=== PATIENT | male | born 2000 | race Two or more races ===

== ENCOUNTER 2023-09-29 22:22 | Emergency (ER) | payer OTHER, MEDICAID, SELFPAY ==
--- NOTE | ~2023-09-29 | XR_ITS ---
EXAMINATION: XR ABDOMEN KUB CLINICAL INDICATION: Swallowed a coin COMPARISON: 09/30/2023 TECHNIQUE: AP view of the abdomen. FINDINGS: The coin seen yesterday on a KUB at 1:48 AM is no longer present and presumably has been passed or removed endoscopically. The bowel gas pattern is normal with no evidence of ileus or obstruction. No unusual soft tissue calcifications are noted. The bones are unremarkable. XR/XR KUB IMPRESSION: The coin seen yesterday is no longer present.
--- NOTE | ~2023-09-29 | XR_ITS ---
EXAMINATION: XR ABDOMEN KUB CLINICAL INDICATION: Reason for Exam psych, states ate coins? COMPARISON: None available. TECHNIQUE: AP view of the abdomen. FINDINGS: Round metallic density overlying the right upper quadrant measures approximately 2.6 cm in diameter, suspicious for an ingested coin in the distal stomach. Bowel gas pattern is nonobstructive. Moderate stool is present in the right colon. Limited assessment for free air with supine positioning. No suspicious calcifications are seen. No acute osseous findings are seen. XR/XR KUB IMPRESSION: Round metallic density overlying the right upper quadrant, suspicious for an ingested coin in the distal stomach.
[2023-09-29 22:55] VITALS: BP 128/88; BP 148/88; PULSE 120; PULSE 126; RESP 18; TEMP 36.3; O2SAT 94; O2SAT 97; BMI 25.2
[2023-09-30 00:07] LABS: Amphetamine Screen Urine POSITIVE (Not Detect); Barbiturates, Urine Not Detected (Not Detect); Benzodiazepines Screen Urine Not Detected (Not Detect); Buprenorphine Scr Not Detected (Not Detect); Cannabinoid Screen Urine Not Detected (Not Detect); Cocaine Screen Urine Not Detected (Not Detect); Fentanyl, urine Not Detected (Not Detect); Methadone Screen, Urine Not Detected (Not Detect); Opiate Screen Urine Not Detected (Not Detect); Oxycodone Screen Urine Not Detected (Not Detect); Phencyclidine Screen Urine Not Detected (Not Detect)
--- NOTE | 2023-09-30 00:58 | ED.PSYCH ---
HPI - Psych General Chief Complaint: Psychiatric Symptoms Stated Complaint: si and hallucinations Time Seen by Provider: 09/29/23 22:40 Source: patient and EMS Mode of arrival: EMS Limitations: no limitations History of Present Illness ED Provider: Dr. Lory Echols HPI Narrative: Patient comes to the emergency room stating that he is hearing voices. Patient states that the voices are telling him to hurt himself. Patient states that earlier today he swallowed a coin because the voices told him to do so. Patient states he is compliant with his medications. Denies using drugs or alcohol. Related Data Allergies Allergy/AdvReac Type Severity Reaction Status Date / Time No Known Allergies Allergy Verified 09/29/23 23:04 Review of Systems Review of Systems: Constitutional : No Weight loss, No Fever, No Chills, No Night Sweats, No Fatigue, No Malaise ENT/Mouth : No Hearing loss, No Ear Pain, No Nasal Congestion, No Sinus Pain, No Hoarseness, No sore throat, No Rhinorrhea, No Swallowing Difficulty Eyes: No Eye Pain, No Swelling, No Redness, No Foreign Body, No Discharge, No Vision Changes Cardiovascular : No Chest Pain, No SOB, No Dyspnea on Exertion, No Orthopnea, No Edema, No Palpitations Respiratory : No Cough, No Sputum, No Wheezing, No Smoke Exposure, No Dyspnea Gastrointestinal : No Nausea, No Vomiting, No Diarrhea, No Constipation, No abdominal Pain, No Hematochezia, No Melena Genitourinary : no irregular bleeding, No Dysuria, No Urinary Frequency, No Hematuria, No Urinary Incontinence, No Urgency, No Flank Pain, No Urinary Flow Changes, No Hesitancy Musculoskeletal : No joint pain, No Myalgias, No Joint Swelling Skin : No Skin Lesions, No rash Neuro : No Weakness, No Numbness, No Paresthesias, No Loss of Consciousness, No Dizziness, No Headache Psych : No Anxiety/Panic, No Depression, complaining of auditory hallucinations, voices telling him to harm himself, no specifics, vague HI Heme/Lymph: No Bruising, No Bleeding,No Lymphadenopathy Endocrine : No Polyuria, No Polydipsia, No Temperature Intolerance PMFSH Social History Social History Advance Directives: No Advance Directives Information Provided: No Do you have a plan to hurt others: No Plan Physical Exam Vital Signs: Vital Signs: Last Vital Signs Temp 97.4 F 09/29/23 22:55 Pulse 120 H 09/29/23 22:55 Resp 18 09/29/23 22:55 BP 128/88 09/29/23 22:55 Pulse Ox 94 09/29/23 22:55 O2 Del Method Room Air 09/29/23 22:55 BMI result Body Mass Index 25.2 Const: Other: Appearance: Alert. Oriented X3. No acute distress. Eyes: Pupils equal, round and reactive to light. ENT: Pharynx normal. Neck: Normal inspection. Neck supple. No lymph nodes noted. No crepitus CVS: Normal heart rate and rhythm. Pulses normal. Normal S1 and S2 Respiratory: No respiratory distress. Breath sounds normal. No Wheezing. No rales Abdomen: Soft and nontender. No rigidity. No distention. Skin: Skin warm and dry. Normal skin color. Normal skin turgor. Extremities: No lower extremity edema. No Lacerations. No Rash Neuro: Oriented X 3. No motor deficit. No sensory deficit. Moving all extremities. No slurred speech. CN 2 through 12 grossly intact Psych: calm, cooperative, normal affect Course Course Course Narrative: -patient is labs pending. -patient states that he swallowed coins today, denies any abdominal pain, KUB pending Medical Decision Making Medical Decision Making MDM Narrative: Patient states that he is hearing voices. -labs and KUB pending -care team consult pending -physician observation started at 01:07 Differential Diagnosis Differential Diagnoses: The differential diagnosis associated with the presentation includes (A substance abuse, schizophrenia, bipolar disorder) Admission/Observation Consideration of admission/observation: Escalation of care including admission/observation considered (She waiting to be seen by the care team) Lab Data Labs: Lab Results 09/29/23 Range/Units 23:47 Urine Opiates Screen Not Detected (Not Detect) Ur Buprenorphine Scrn Not Detected (Not Detect) ng/mL Ur Oxycodone Screen Not Detected (Not Detect) ng/mL Urine Methadone Screen Not Detected (Not Detect) ng/mL Urine Fentanyl Screen Not Detected (Not Detect) Ur Barbiturates Screen Not Detected (Not Detect) Ur Phencyclidine Scrn Not Detected (Not Detect) Ur Amphetamines Screen POSITIVE H (Not Detect) U Benzodiazepines Scrn Not Detected (Not Detect) Urine Cocaine Screen Not Detected (Not Detect) U Marijuana (THC) Screen Not Detected (Not Detect) Critical Care Time Critical Care Time Critical Care Time: Yes Total Critical Care Time: 30 Attestation: I have personally provided critical care time. Time includes review of lab data, radiology results, discussion with consultants, and monitoring for potential decompensation. Intervention performed as documented. Discharge Plan Discharge Clinical Impression: Auditory hallucination Patient Disposition: Still a Patient Print Language: Greenlandic
[2023-09-30 01:28] LABS: MANUAL DIFF FLAG NO
[2023-09-30 01:31] LABS: Basophils Percent Auto 0.4 % (0-2); Eosinophils Absolute Auto 0.1 X10*3/uL (0.0-0.4); Eosinophils Percent Auto 0.5 % (0-4); Hemoglobin 14.5 g/dl (14.0-18.0); Imm Gran Abs Auto 0.02 X10*3/uL (0.00-0.03); Imm Gran Pct Auto 0.2 % (0.0-0.4); Lymphocytes Absolute Auto 2.3 X10*3/uL (1.2-4.9); Lymphocytes Percent Auto 23.4 % (20-40); Mean Corpuscular HGB Conc 33.7 g/dl (31.0-36.0); Mean Corpuscular Hemoglobin 30.6 pg (27.0-33.0); Mean Corpuscular Volume 90.7 fL (80.0-98.0); Monocytes Percent Auto 10.2 % (2-11); Neutrophils Absolute Auto 6.4 x10*3/uL (2.0-8.3); Neutrophils Percent Auto 65.3 % (45-73); Platelet Count 179 X10*3/uL (160-400); Red Blood Count 4.74 X10*6/uL (4.60-5.80); White Blood Count 9.7 X10*3/uL (4.8-10.8)
[2023-09-30 01:48] LABS: Ethanol < 10 mg/dL
[2023-09-30 01:52] LABS: Alanine Aminotransferase 47 U/L (0-40); Albumin Level 3.9 g/dL (3.5-5.0); Alkaline Phosphatase 73 U/L (39-117); Anion Gap 13 (12-20); Aspartate Amino Transferase 48 U/L (5-37); Bilirubin Direct < 0.2 mg/dL (0.0-0.5); Bilirubin Total 0.2 mg/dL (0.0-1.0); Blood Urea Nitrogen 18 mg/dL (9-16); Calcium 9.6 mg/dL (8.4-10.2); Carbon Dioxide 23 mmol/L (22-29); Chloride 111 mmol/L (96-108); Creatinine Clr Calc Pharmacy 96.7; Estimated Glomerular Filt Rate > 60; Glucose Random 84 mg/dL (60-115); Potassium 3.8 mmol/L (3.3-5.1); Sodium 143 mmol/L (135-145); Total Protein 7.2 g/dL (6.5-8.0)
[2023-09-30 01:56] LABS: Delay - Chemistry DELAY
[2023-09-30 02:34] LABS: Acetaminophen LAB < 3 mcg/mL (<30); Salicylate < 5.0 mg/dL (15-30)
[2023-09-30 06:35] VITALS: RESP 19
--- NOTE | 2023-09-30 06:55 | PC.NURSE ---
Assumed care of patient at 0645. Patient is observed resting quietly in their bed. No signs of distress. Breathing is even and unlabored.
[2023-09-30 08:19] VITALS: BP 112/61; PULSE 89; RESP 16; TEMP 35.8; O2SAT 96
--- NOTE | 2023-09-30 08:24 | MHC.EDTECH ---
Patient given breakfast
--- NOTE | 2023-09-30 08:42 | PC.NURSE ---
Addendum entered by Rodolfo Villalta RN 09/30/23 11:32: Dr. Harden aware of Zyprexa being ineffective. MD with orders. Addendum entered by oRdolfo Villalta RN 09/30/23 10:28: PT reports Zyprexa ineffective for controlling AH Original Note: PT c/o auditory hallucinations. PT is unsure what medications he takes at home for controlling these hallucinations but is willing to try Zyprexa. Dr. Harden aware with orders.
[2023-09-30] MEDS: OLANZapine 10 MG TABLET PO (08:50)
[2023-09-30] MEDS: LORazepam 1 MG TABLET 2 MG PO (10:54)
[2023-09-30 14:00] LABS: Valproate 90.9 mcg/mL (50.0-100.0)
[2023-09-30 14:33] VITALS: BP 91/58; PULSE 72; RESP 14; TEMP 35.7; O2SAT 98
--- NOTE | 2023-09-30 15:55 | MHC.CARE ---
Pt seen by CARE team, group to call in AM to discuss possible discharge planning back to residential. CARE team to follow up in AM.
--- NOTE | 2023-09-30 19:44 | PC.NURSE ---
patient seated in group area watching television quiety and cooperative able to ask for what he needs, very pleasant client appears in no distress.
[2023-09-30] MEDS: ARIPiprazole 20 MG TABLET PO (20:18)
[2023-09-30] MEDS: Divalproex Sodium ER 500 MG TAB.ER.24H 2000 MG PO (20:18)
--- NOTE | 2023-10-01 05:31 | PC.NURSE ---
Pt sleeping at the bedside. No apparent distress noted. Breaths are even regular and unlabored with equal chest rises. Monitoring is ongoing.
[2023-10-01 06:06] VITALS: BP 108/67; PULSE 80; RESP 17; TEMP 36.5; O2SAT 98
[2023-10-01] MEDS: Dextroamphetamine/Amphetamine XR 5 MG CAP.ER.24H 15 MG PO (08:54)
[2023-10-01] MEDS: ARIPiprazole 20 MG TABLET PO (08:54)
[2023-10-01] MEDS: Amphetamine Mixed Salts 10 MG TABLET 5 MG PO (12:36)
[2023-10-01] MEDS: diphenhydrAMINE HCL 25 MG CAPSULE 50 MG PO (13:57)
[2023-10-01] MEDS: OLANZapine 5 MG TABLET PO (13:57)
--- NOTE | 2023-10-01 14:15 | PC.NURSE ---
pt threatened to hurt himself with markers that he was given for coloring, they were removed, he then tried to cut himself with the saferty spoon and that was removed, he then started to bite his hand but stopped when spoken to, prn was given and pt now appears more calm and talking on the phone
--- NOTE | 2023-10-01 15:41 | PC.NURSE ---
shelter called stating they need follow up KUB to ensure that coin has passed, provider aware. Patient stating he has had multiple BMS unsure if coin was in BM
--- NOTE | 2023-10-01 17:31 | MHC.CARE ---
Meeting with [facility] detention and DSS tomorrow morning to discuss discharge planning.
--- NOTE | 2023-10-01 17:59 | PC.NURSE ---
Calm and cooperative, went to xray for repeat kub. Denies pain or discomfort. Provided with personal hygiene items to take shower
--- NOTE | 2023-10-01 18:57 | PHA.MEDREC ---
Pharmacy Consult ? Medication Reconciliation Pharmacy has completed the medication reconciliation. Reviewed med rec done my nursing.
[2023-10-01] MEDS: Divalproex Sodium ER 500 MG TAB.ER.24H 2000 MG PO (19:52)
[2023-10-01 20:09] VITALS: BP 138/91; PULSE 110; RESP 20; TEMP 36.7; O2SAT 96
[2023-10-01] MEDS: Mirtazapine 7.5 MG TABLET PO ×2 (20:17→21:30)
--- NOTE | 2023-10-01 20:58 | PC.NURSE ---
[facility] med administration patient became fixated on calling [facility], wanting to be transferred there. t/w stated i would write it in his chart . he asked all staff nearby to help him contCT THEM,. initially refused meds then with enc of rn social work complied to take his medications. patient tucked in bed and appears content presently patient has weighted blanket currently.
[2023-10-02 06:30] VITALS: RESP 18
--- NOTE | 2023-10-02 07:10 | PC.NURSE ---
Assumed care of patient at 0645. Patient is observed sitting quietly in the milieu. No distress observed, breathing is even and unlabored.
[2023-10-02 07:59] VITALS: BP 113/65; PULSE 90; RESP 14; TEMP 36.1; O2SAT 96
[2023-10-02] MEDS: ARIPiprazole 20 MG TABLET PO (08:02)
[2023-10-02] MEDS: Dextroamphetamine/Amphetamine XR 5 MG CAP.ER.24H 15 MG PO (08:02)
--- NOTE | 2023-10-02 12:24 | MHC.CARE ---
[facility] Pt at this time is refusing to discharge from the ED, Pt is not meeting criteria for [facility] admission at this time and no clear goal for admission can be identified. [facility] is working on a transition plan to return to today, however there needs to be some level of by in from Pt as they are refusing to the leave the ED. Pt is endorsing voices that are conditional to the program Pt would like to attend. [facility] staff will visit Pt today, and attempt to get Pt to agree to discharge. [facility] is asking to board Pt to tomorrow to prevent escalation of Pt from being discharge. [facility] and [facility] are aware Pt can not board for an extend period of time pending community based placement. Plan for Pt to be discharged today, if Pt agreeable to transport with staff in personal vehicle or chair van. CARE Team will notify co-response and complete [facility] follow up. If Pt is not agreeable today, Pt will be tentatively be discharged tomorrow.
[2023-10-02] MEDS: diphenhydrAMINE HCL 25 MG CAPSULE 50 MG PO (12:26)
[2023-10-02] MEDS: OLANZapine 5 MG TABLET PO (12:26)
[2023-10-02] MEDS: Amphetamine Mixed Salts 10 MG TABLET 5 MG PO (14:02)
[2023-10-02 17:05] VITALS: BP 113/65; PULSE 90; RESP 14; TEMP 36.1; O2SAT 96
== END 2023-10-02 17:12 | disposition home or self-care (01) ==
PROVIDERS: Emergency Medicine; Emergency Provider Emergency Medicine
DX: R44.0 Auditory hallucinations (principal); R45.851 Suicidal ideations
CPT/HCPCS: 36415; 74018; 80048; 80076; 80143; 80164; 80179; 80307; 85025; 99284; 99285; S9485

== ENCOUNTER 2023-11-17 22:02 | Emergency (ER) | payer MEDICAID, SELFPAY ==
--- NOTE | ~2023-11-17 | XR_ITS ---
EXAMINATION: XR CHEST CLINICAL INFORMATION: Chest pain. COMPARISON: None available. TECHNIQUE: 2 views of the chest were obtained. FINDINGS: No significant abnormality is noted involving the heart, lungs, mediastinum, bony thorax or soft tissues. XR/XR chest 2V IMPRESSION: Unremarkable examination. Electronically signed by: Kaiser Locke MD 11/18/2023 01:22 AM EDT RP
[2023-11-17 22:10] VITALS: BP 160/110; PULSE 108; O2SAT 95
[2023-11-17 22:16] VITALS: BP 124/80; PULSE 97; RESP 16; TEMP 37.4; O2SAT 95; BMI 23.6
--- NOTE | 2023-11-17 23:48 | ED_ITS ---
HPI - General Adult General Chief complaint: Abdominal Pain Stated complaint: From senior care, RUQ, RLQ pain Time Seen by Provider: 11/17/23 23:09 Source: patient, RN notes reviewed and old records reviewed Mode of arrival: EMS Limitations: no limitations History of Present Illness ED Provider: Cyrus HPI narrative: 22-year-old male presents for evaluation from a local senior care for abdominal pain Patient reports that he developed right upper abdominal pain about 4 hours prior to arrival. His pain seems to be worse after eating He has associated nausea and vomiting. He denies any history abdominal surgeries. His pain is 8/10, sharp, stabbing Denies any fevers, chills No other complaints or concerns at this time Related Data Home Medications ?Medication ?Instructions ?Recorded ?Confirmed acetaminophen 325 mg tablet 650 mg PO Q6H PRN Body Aches / 09/30/23 09/30/23 (Tylenol) Fever >100 aripiprazole 20 mg tablet (Abilify) 20 mg PO DAILY 09/30/23 09/30/23 dextroamphetamine-amphetamine 5 mg 5 mg PO 1300 09/30/23 09/30/23 tablet (Adderall) dextroamphetamine-amphetamine ER 15 mg PO DAILY 09/30/23 09/30/23 15 mg 24hr capsule,extend release (Adderall XR) diphenhydramine HCl 50 mg tablet 50 mg PO Q6H PRN Give with Zyprexa 09/30/23 09/30/23 (Benadryl Allergy) PRN divalproex 500 mg tablet,extended 2,000 mg PO BEDTIME 09/30/23 09/30/23 release 24 hr (Depakote ER) mirtazapine 7.5 mg tablet 7.5 mg PO BEDTIME 09/30/23 09/30/23 olanzapine 5 mg tablet (Zyprexa) 5 mg PO Q6H PRN Agitation/Psychosis 09/30/23 09/30/23 trazodone 50 mg tablet 50 mg PO BEDTIME PRN Insomnia 09/30/23 09/30/23 Previous Rx's ?Medication ?Instructions ?Recorded ondansetron 4 mg disintegrating 4 mg PO Q8H PRN nausea and 11/18/23 tablet vomiting #20 tabs Allergies Allergy/AdvReac Type Severity Reaction Status Date / Time No Known Allergies Allergy Verified 11/17/23 22:18 Review of Systems 2 Constitutional: Constitutional: Denies body ache(s), Denies chills and Denies fever(s) Eyes: Eyes: Denies blurry vision Cardiovascular: Cardiovascular: Denies chest pain and Denies dyspnea Respiratory: Respiratory: Denies cough and Denies dyspnea Gastrointestinal: Gastrointestinal: Reports abdominal pain, Reports nausea and Reports vomiting Musculoskeletal: Musculoskeletal: Denies back pain Integumentary/Breasts: Skin/Breast: Denies rash PMFSH Social History Social History Smoked in Last 30 Days: No Use of substances other than those prescribed or required for medical reasons: No Advance Directives: No Advance Directives Information Provided: No Do you have a plan to hurt others: No Plan Physical Exam ED Vital Signs: Vital Signs - 24 hr 11/17/23 22:16 Temperature 99.4 F Pulse Rate 97 Respiratory Rate 16 Blood Pressure 124/80 Pulse Oximetry 95 Oxygen Delivery Method Room Air BMI result Body Mass Index 23.6 Const General: healthy appearing, comfortable, no acute distress, alert and awake Nutritional Appearance: well nourished Orientation/consciousness: patient oriented x3 HENMT Head: Yes normocephalic and Yes atraumatic Eyes Eyelids: Yes eyelids normal Conjunctivae: conjunctivae normal Sclerae: sclerae normal Corneas: corneas normal Pupils: Equal, round and reactive pupils present EOM: EOMs intact bilaterally Neck Neck: Yes full ROM Resp Effort & Inspection: normal respiratory effort, able to speak in complete sentences and not labored GI Inspection: No distended Palpation (GI): Soft to palpation, not firm, Tenderness to palpation present (GI) in the RUQ; not in the RLQ, not at McBurney's point and Johnson's sign negative, no guarding and not rigid Skin General skin exam: elasticity normal Neuro General: patient oriented x3 Cranial nerves: Yes Equal, round and reactive pupils present and Yes Bilaterally intact EOM present Cognition (Neuro): normal cognition Extrem Other: Moving all extremities well without any obvious deformities Course Reevaluation(s) Reevaluation #1: Bedside ultrasound performed with attending, Dr Wilder showed no large radiopaque gallstones, GB thickening, or pericholecystic fluid Time: 00:39 Reevaluation #2: Patient resting comfortably, no further vomiting, symptoms likely viral in nature. Will discharge the patient with Zofran Time: 01:47 Medications Administered Discontinued Medications Generic Name Dose Route Start Last Admin Trade Name Denise PRN Reason Stop Dose Admin Sodium Chloride 1,000 mls @ 999 mls/hr 11/17/23 23:15 11/18/23 00:01 Ns IV 11/18/23 00:15 999 mls/hr .Q1H1M NIKOLAY Administration Morphine Sulfate 4 mg 11/17/23 23:14 11/18/23 00:02 Morphine Sulfate 4 Mg/Ml Cartridge IVPUSH 11/17/23 23:15 4 mg ONCE ONE Administration Protocol Ondansetron HCl 4 mg 11/17/23 23:14 11/18/23 00:02 Ondansetron Hcl 4 Mg/2 Ml Vial IVPUSH 11/17/23 23:15 4 mg ONCE ONE Administration Medical Decision Making Medical Decision Making [facility] Narrative: 22-year-old male presents for evaluation of right upper abdominal pain after eating. Plan for basic labs including lipase to evaluate for pancreatitis versus biliary obstruction. Patient medicated with IV fluids, morphine, Zofran.. The patient has no right lower quadrant pain or tenderness. Less likely acute appendicitis. No flank pain or urinary symptoms less likely obstructive uropathy. Differential Diagnosis Differential Diagnoses: The differential diagnosis associated with the presentation includes Gastroenteritis Pancreatitis Peptic ulcer disease Cholelithiasis Acute cholecystitis Lab Data [facility] Lab Attestation statement: I reviewed the patient's lab results. No leukocytosis or anemia. Normal platelet count. No electrolyte abnormalities. Slight elevation of AST and ALT. This is consistent with labs the patient has had in the past. Lipase within normal limits. 11/17/23 23:59 11/17/23 23:59 Labs: Lab Results 11/17/23 11/18/23 Range/Units 23:59 01:07 WBC 8.7 (4.8-10.8) X10*3/uL RBC 4.78 (4.60-5.80) X10*6/uL Hgb 14.7 (14.0-18.0) g/dl Hct 43.8 (42.0-52.0) % MCV 91.6 (80.0-98.0) fL MCH 30.8 (27.0-33.0) pg MCHC 33.6 (31.0-36.0) g/dl RDW 13.5 (11.0-16.0) % Plt Count 195 (160-400) X10*3/uL MPV 9.8 (9.4-12.4) fL Immature Gran % (Auto) 0.2 (0.0-0.4) % Neut % (Auto) 56.0 (45-73) % Lymph % (Auto) 30.4 (20-40) % [place] % (Auto) 10.5 (2-11) % Eos % (Auto) 2.4 (0-4) % Baso % (Auto) 0.5 (0-2) % Lymph # (Auto) 2.7 (1.2-4.9) X10*3/uL [place] # (Auto) 0.9 (0.1-1.2) X10*3/uL Eos # (Auto) 0.2 (0.0-0.4) X10*3/uL Baso # (Auto) 0.0 (0.0-0.2) X10*3/uL Abs Immat Gran (auto) 0.02 (0.00-0.03) X10*3/uL Absolute Neuts (auto) 4.9 (2.0-8.3) x10*3/uL Absolute Nucleated RBC 0.000 (0.0-0.012) X10*3/uL Nucleated RBC % (auto) 0.0 (0.0-0.2) /100WBC Sodium 142 (135-145) mmol/L Potassium 3.9 (3.3-5.1) mmol/L Chloride 108 (96-108) mmol/L Carbon Dioxide 26 (22-29) mmol/L Anion Gap 12 (12-20) BUN 14 (9-16) mg/dL Creatinine 0.82 (0.5-1.4) mg/dL Estim Creat Clear Calc 135.5 Estimated GFR > 60 Random Glucose 98 (60-115) mg/dL Calcium 9.1 (8.4-10.2) mg/dL Total Bilirubin 0.2 (0.0-1.0) mg/dL AST 40 H (5-37) U/L ALT 53 H (0-40) U/L Alkaline Phosphatase 71 (39-117) U/L Total Protein 7.3 (6.5-8.0) g/dL Albumin 3.9 (3.5-5.0) g/dL Lipase 27 (8-78) U/L COVID-19 ([facility]) Negative (Negative) COVID-19 Clin Com See Note Discharge Plan Discharge Clinical Impression: Abdominal pain Patient Disposition: Home, Self-Care Instructions: Acute Abdominal Pain (ED) Additional Instructions: Your workup in the ER today was reassuring. This includes your blood work pain Your bedside ultrasound did not show any obvious gallstones. I do recommend that you follow-up with your primary doctor. Take Zofran as needed for nausea/vomiting Return for new or worsening symptoms Prescriptions: New ondansetron 4 mg tablet,disintegrating 4 mg PO Q8H PRN (Reason: nausea and vomiting) Qty: 20 0RF No Action acetaminophen [Tylenol] 325 mg Tablet 650 mg PO Q6H PRN (Reason: Body Aches / Fever >100) trazodone 50 mg Tablet 50 mg PO BEDTIME PRN (Reason: Insomnia) Benadryl Allergy 50 mg Tablet 50 mg PO Q6H PRN (Reason: Give with Zyprexa PRN) olanzapine [Zyprexa] 5 mg Tablet 5 mg PO Q6H PRN (Reason: Agitation/Psychosis) divalproex [Depakote ER] 500 mg Tablet Extended Release 24 Hr 2,000 mg PO BEDTIME dextroamphetamine-amphetamine [Adderall] 5 mg Tablet 5 mg PO 1300 dextroamphetamine-amphetamine [Adderall XR] 15 mg Capsule,Extended Release 24hr 15 mg PO DAILY aripiprazole [Abilify] 20 mg Tablet 20 mg PO DAILY mirtazapine 7.5 mg Tablet 7.5 mg PO BEDTIME Print Language: French
[2023-11-18] MEDS: 0.9 % Sodium Chloride 1,000 ML 999 ML IV (00:01)
[2023-11-18] MEDS: Morphine Sulfate 4 MG/ML CARTRIDGE IVPUSH (00:02)
[2023-11-18] MEDS: ondansetron HCL 4 MG/2 ML VIAL IVPUSH (00:02)
[2023-11-18 00:06] LABS: MANUAL DIFF FLAG NO
[2023-11-18 00:08] LABS: Basophils Percent Auto 0.5 % (0-2); Eosinophils Absolute Auto 0.2 X10*3/uL (0.0-0.4); Eosinophils Percent Auto 2.4 % (0-4); Hematocrit 43.8 % (42.0-52.0); Hemoglobin 14.7 g/dl (14.0-18.0); Imm Gran Abs Auto 0.02 X10*3/uL (0.00-0.03); Imm Gran Pct Auto 0.2 % (0.0-0.4); Lymphocytes Absolute Auto 2.7 X10*3/uL (1.2-4.9); Lymphocytes Percent Auto 30.4 % (20-40); Mean Corpuscular HGB Conc 33.6 g/dl (31.0-36.0); Mean Corpuscular Hemoglobin 30.8 pg (27.0-33.0); Mean Corpuscular Volume 91.6 fL (80.0-98.0); Mean Platelet Volume 9.8 fL (9.4-12.4); Monocytes Absolute Auto 0.9 X10*3/uL (0.1-1.2); Monocytes Percent Auto 10.5 % (2-11); Neutrophils Absolute Auto 4.9 x10*3/uL (2.0-8.3); Platelet Count 195 X10*3/uL (160-400); Red Blood Count 4.78 X10*6/uL (4.60-5.80); Red Cell Distribution Width 13.5 % (11.0-16.0); White Blood Count 8.7 X10*3/uL (4.8-10.8)
[2023-11-18 00:26] LABS: Alanine Aminotransferase 53 U/L (0-40); Albumin Level 3.9 g/dL (3.5-5.0); Alkaline Phosphatase 71 U/L (39-117); Anion Gap 12 (12-20); Aspartate Amino Transferase 40 U/L (5-37); Bilirubin Total 0.2 mg/dL (0.0-1.0); Blood Urea Nitrogen 14 mg/dL (9-16); Calcium 9.1 mg/dL (8.4-10.2); Carbon Dioxide 26 mmol/L (22-29); Chloride 108 mmol/L (96-108); Creatinine Clr Calc Pharmacy 135.5; Estimated Glomerular Filt Rate > 60; Glucose Random 98 mg/dL (60-115); Lipase 27 U/L (8-78); Potassium 3.9 mmol/L (3.3-5.1); Sodium 142 mmol/L (135-145); Total Protein 7.3 g/dL (6.5-8.0)
[2023-11-18 01:31] LABS: COVID-19 Test Negative (Negative); IDNOW Serial# 08D9AD1C
[2023-11-18 02:00] VITALS: BP 145/66; PULSE 86; RESP 17; TEMP 36.2; O2SAT 98
--- NOTE | 2023-11-18 02:23 | PC.NURSE ---
Called number on chart, to let them know, pt had been d/c. no one answered. pt tried to call and no answer, willl keep trying
[2023-11-18] MEDS: Acetaminophen 325 MG TABLET 975 MG PO (03:02)
[2023-11-18 06:04] VITALS: BP 107/68; PULSE 61; RESP 17; TEMP 36.2; O2SAT 97
--- NOTE | 2023-11-18 06:38 | PC.NURSE ---
called pt's aunt and was able to get [facility]'s number, Negar (accountant supervisor), went to voice mail, left a message
--- NOTE | 2023-11-18 06:57 | PC.NURSE ---
report given to Celestina JUSTICE
[2023-11-18 10:18] VITALS: BP 107/68; PULSE 61; RESP 17; TEMP 36.2; O2SAT 97
== END 2023-11-18 10:18 | disposition home or self-care (01) ==
PROVIDERS: Physician Assistant; Emergency Provider Internal Medicine
DX: R10.11 Right upper quadrant pain (principal); R07.9 Chest pain, unspecified; R11.2 Nausea with vomiting, unspecified; Z11.52 Encounter for screening for COVID-19
CPT/HCPCS: 36415; 71046; 80053; 83690; 85025; 87635; 96361; 96374; 96375; 99284; 99285; J2270; J2405

== ENCOUNTER 2023-11-24 22:29 | Emergency (ER) | payer MEDICAID, SELFPAY ==
[2023-11-24 22:41] VITALS: BP 121/71; BP 182/98; PULSE 102; PULSE 113; RESP 16; TEMP 37.3; O2SAT 95; BMI 41.0
[2023-11-24 23:03] LABS: Hematocrit 43.4 % (42.0-52.0); Hemoglobin 14.8 g/dl (14.0-18.0); Mean Corpuscular HGB Conc 34.1 g/dl (31.0-36.0); Mean Platelet Volume 9.9 fL (9.4-12.4); Platelet Count 186 X10*3/uL (160-400); Red Blood Count 4.77 X10*6/uL (4.60-5.80); Red Cell Distribution Width 13.2 % (11.0-16.0); White Blood Count 8.9 X10*3/uL (4.8-10.8)
[2023-11-24 23:20] LABS: Alanine Aminotransferase 51 U/L (0-40); Albumin Level 4.3 g/dL (3.5-5.0); Alkaline Phosphatase 65 U/L (39-117); Anion Gap 13 (12-20); Aspartate Amino Transferase 46 U/L (5-37); Bilirubin Total 0.3 mg/dL (0.0-1.0); Blood Urea Nitrogen 15 mg/dL (9-16); Calcium 9.7 mg/dL (8.4-10.2); Carbon Dioxide 25 mmol/L (22-29); Chloride 108 mmol/L (96-108); Creatinine Clr Calc Pharmacy 138.3; Estimated Glomerular Filt Rate > 60; Glucose Random 63 mg/dL (60-115); Sodium 142 mmol/L (135-145); Total Protein 7.7 g/dL (6.5-8.0)
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
[2023-11-25] MEDS: OLANZapine 5 MG TABLET PO (01:34)
[2023-11-25 06:00] VITALS: BP 105/48; PULSE 64; RESP 16; TEMP 36.7; O2SAT 98
--- NOTE | 2023-11-25 07:02 | PC.NURSE ---
Assumed care of patient at 0645. At this time the patient is observed resting quietly in bed. No signs of distress observed. Breathing is even and unlabored.
--- NOTE | 2023-11-25 10:12 | MHC.CARE ---
Pt seen by CARE team for assessment, patient does not meet inpatient level of care and will be discharged back to [facility] tomorrow, Sunday11/26/23. Director of [facility] Negar reports provider meeting meeting is not able to be done today due to it being Sunday. She reports meeting to be done tomorrow with DDS to put some type of plan in place to better support patents return. ED provider notified and in agreement with disposition for discharge tomorrow.
[2023-11-25 17:44] VITALS: BP 95/54; PULSE 66; RESP 16; TEMP 36.6; O2SAT 98
[2023-11-25 20:51] VITALS: BP 107/65; PULSE 75; RESP 16; TEMP 36.6; O2SAT 98
--- NOTE | 2023-11-25 22:05 | PC.NURSE ---
Addendum entered by Rowena Louis 11/26/23 07:06: now* Original Note: T/W spoke with staff regarding med list and current pharmacy list. List does not include recent med changes with jerica negron- he is not taking abilify 30mg
[2023-11-26 06:31] VITALS: BP 118/53; PULSE 65; RESP 16; TEMP 36.6; O2SAT 98
--- NOTE | 2023-11-26 09:02 | PC.NURSE ---
Assumed care of patient at 0645, patient appears to be in no apparent distress this am, ambulating around [facility] pod with steady gait, requesting to leave. Plan of care for discharge at some point today, pending CARE team hearing back from longterm
[2023-11-26] MEDS: ARIPiprazole 30 MG TABLET PO (09:50)
[2023-11-26] MEDS: Dextroamphetamine/Amphetamine XR 5 MG CAP.ER.24H 15 MG PO (09:50)
--- NOTE | 2023-11-26 12:03 | MHC.CARE ---
Negar from long term reports patient will be picked up by staff @ 4 PM and transported back to long term. Dr. Harden in agreement with disposition.
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
[2023-11-26] MEDS: Amphetamine Mixed Salts 10 MG TABLET 5 MG PO (13:20)
[2023-11-26] MEDS: OLANZapine 5 MG TABLET PO (13:20)
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
[2023-11-26 14:25] VITALS: RESP 14
--- NOTE | 2023-11-26 14:33 | PC.NURSE ---
Pt observed to be scratching at small area on left hand. When this RN inquired about it, patient began biting at it. Attempted to re-direct patient with some success. Bandage offered, pt declined
[2023-11-26 17:22] VITALS: BP 118/53; PULSE 65; RESP 16; TEMP 36.7; O2SAT 98
== END 2023-11-26 17:24 | disposition other institution (70) ==
PROVIDERS: Internal Medicine; Emergency Provider Emergency Medicine Emergency Medical Services
DX: F20.9 Schizophrenia, unspecified (principal); R45.851 Suicidal ideations; Z79.899 Other long term (current) drug therapy
CPT/HCPCS: 36415; 80053; 85027; 99285; S9485

== ENCOUNTER 2023-12-17 21:39 | Emergency (ER) | payer MEDICAID, SELFPAY ==
[2023-12-17 21:48] VITALS: BP 140/100; PULSE 102; O2SAT 98
[2023-12-17 21:49] VITALS: BP 131/74; PULSE 98; RESP 16; TEMP 36.9; O2SAT 95; BMI 30.3
[2023-12-17 22:35] LABS: MANUAL DIFF FLAG NO
[2023-12-17 22:36] LABS: Basophils Percent Auto 0.3 % (0-2); Eosinophils Percent Auto 0.3 % (0-4); Hematocrit 44.4 % (42.0-52.0); Hemoglobin 15.1 g/dl (14.0-18.0); Imm Gran Abs Auto 0.03 X10*3/uL (0.00-0.03); Imm Gran Pct Auto 0.3 % (0.0-0.4); Lymphocytes Absolute Auto 2.1 X10*3/uL (1.2-4.9); Lymphocytes Percent Auto 20.4 % (20-40); Mean Corpuscular Hemoglobin 30.8 pg (27.0-33.0); Mean Corpuscular Volume 90.6 fL (80.0-98.0); Mean Platelet Volume 10.1 fL (9.4-12.4); Monocytes Absolute Auto 0.9 X10*3/uL (0.1-1.2); Monocytes Percent Auto 9.3 % (2-11); Neutrophils Percent Auto 69.4 % (45-73); Platelet Count 181 X10*3/uL (160-400); Red Cell Distribution Width 13.2 % (11.0-16.0)
[2023-12-17 22:50] LABS: Acetaminophen LAB < 3 mcg/mL (<30); Alanine Aminotransferase 41 U/L (0-40); Albumin Level 4.1 g/dL (3.5-5.0); Alkaline Phosphatase 63 U/L (39-117); Anion Gap 17 (12-20); Aspartate Amino Transferase 47 U/L (5-37); Bilirubin Total 0.2 mg/dL (0.0-1.0); Blood Urea Nitrogen 17 mg/dL (9-16); Calcium 9.2 mg/dL (8.4-10.2); Carbon Dioxide 21 mmol/L (22-29); Chloride 107 mmol/L (96-108); Creatinine Clr Calc Pharmacy 94.5; Estimated Glomerular Filt Rate > 60; Glucose Random 84 mg/dL (60-115); Salicylate < 5.0 mg/dL (15-30); Sodium 141 mmol/L (135-145); Total Protein 7.6 g/dL (6.5-8.0)
[2023-12-17 23:00] LABS: Appearance Urine Clear; Color Urine Dark Yellow; Glucose Urine UA Negative (Negative); Leukocyte Esterase Urine Negative (Negative); Nitrite Urine Negative (Negative); Specific Gravity - Urine >= 1.030 (1.005-1.025); Urine Blood Negative (Negative); Urine Ketones 15 mg/dL (Negative); Urine Protein Trace mg/dL (Neg-Trace)
[2023-12-17 23:09] LABS: Bacteria Urine None Seen (None Seen); Hyaline Casts Urine 0-2 /LPF (0-2); RBC Urine 0-2 /HPF (0-2); Squamous Epithelial Cell Urine 0-2 /HPF (0-2); WBC Urine 0-5 /HPF (0-5)
[2023-12-17 23:10] LABS: Amphetamine Screen Urine POSITIVE (Not Detect); Barbiturates, Urine Not Detected (Not Detect); Benzodiazepines Screen Urine Not Detected (Not Detect); Buprenorphine Scr Not Detected (Not Detect); Cannabinoid Screen Urine Not Detected (Not Detect); Cocaine Screen Urine Not Detected (Not Detect); Fentanyl, urine Not Detected (Not Detect); Methadone Screen, Urine Not Detected (Not Detect); Opiate Screen Urine Not Detected (Not Detect); Oxycodone Screen Urine Not Detected (Not Detect); Phencyclidine Screen Urine Not Detected (Not Detect)
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
[2023-12-18 07:10] VITALS: BP 121/60; PULSE 75; RESP 14; O2SAT 99
--- NOTE | 2023-12-18 07:43 | PC.NURSE ---
Assumed care of patient at 0645, patient appears to be in no apparent distress this am, ambulating around [facility] pod, offering no complaints to this RN. Continue plan of care for CARE team es
[2023-12-18] MEDS: Dextroamphetamine/Amphetamine XR 5 MG CAP.ER.24H 15 MG PO (10:14)
[2023-12-18] MEDS: hydrOXYzine HCL 50 MG TABLET PO (10:14)
--- NOTE | 2023-12-18 10:28 | MHC.CARE ---
Pt seen by CARE team and will be discharged, staff from [facility] will pick him up at 1 PM.
== END 2023-12-18 12:38 | disposition home or self-care (01) ==
PROVIDERS: Emergency Provider Emergency Medicine
DX: R45.851 Suicidal ideations (principal); F20.9 Schizophrenia, unspecified; R45.1 Restlessness and agitation; Z79.899 Other long term (current) drug therapy
CPT/HCPCS: 36415; 80053; 80143; 80179; 80307; 81001; 85025; 99284; S9485

== ENCOUNTER 2023-12-21 21:39 | Emergency (ER) | payer MEDICAID, SELFPAY ==
--- NOTE | ~2023-12-21 | XR_ITS ---
EXAMINATION: XR ABDOMEN KUB CLINICAL INDICATION: Constipation. COMPARISON: None available. TECHNIQUE: AP view of the abdomen. FINDINGS: The bowel gas pattern is normal with no evidence of ileus or obstruction. There is retained right and transverse colonic stool. No unusual soft tissue calcifications are noted. The bones are unremarkable. XR/XR KUB IMPRESSION: Nonobstructive bowel gas pattern. Retained right and transverse colonic stool. Electronically signed by: Kaiser Locke MD 12/22/2023 01:15 AM EDT
[2023-12-21 21:46] VITALS: BP 164/96; PULSE 100; O2SAT 94
[2023-12-21 21:48] VITALS: BP 121/76; PULSE 103; RESP 20; TEMP 36.8; O2SAT 95; BMI 35.6
--- NOTE | 2023-12-21 21:52 | PC.NURSE ---
sales manager is Jonatan [phone]
[2023-12-21 22:20] LABS: MANUAL DIFF FLAG NO
[2023-12-21 22:22] LABS: Basophils Percent Auto 0.3 % (0-2); Eosinophils Percent Auto 0.3 % (0-4); Hematocrit 43.8 % (42.0-52.0); Hemoglobin 15.1 g/dl (14.0-18.0); Imm Gran Abs Auto 0.04 X10*3/uL (0.00-0.03); Imm Gran Pct Auto 0.3 % (0.0-0.4); Lymphocytes Absolute Auto 2.3 X10*3/uL (1.2-4.9); Lymphocytes Percent Auto 19.9 % (20-40); Mean Corpuscular HGB Conc 34.5 g/dl (31.0-36.0); Mean Corpuscular Hemoglobin 31.2 pg (27.0-33.0); Mean Corpuscular Volume 90.5 fL (80.0-98.0); Mean Platelet Volume 9.8 fL (9.4-12.4); Monocytes Percent Auto 8.8 % (2-11); Neutrophils Absolute Auto 8.1 x10*3/uL (2.0-8.3); Neutrophils Percent Auto 70.4 % (45-73); Platelet Count 189 X10*3/uL (160-400); Red Blood Count 4.84 X10*6/uL (4.60-5.80); Red Cell Distribution Width 13.2 % (11.0-16.0); White Blood Count 11.5 X10*3/uL (4.8-10.8)
[2023-12-21 22:23] LABS: Appearance Urine Clear; Color Urine Yellow; Glucose Urine UA Negative (Negative); Leukocyte Esterase Urine Negative (Negative); Nitrite Urine Negative (Negative); Specific Gravity - Urine >= 1.030 (1.005-1.025); Urine Blood Negative (Negative); Urine Ketones 15 mg/dL (Negative); Urine Protein Negative (Neg-Trace)
[2023-12-21 22:35] LABS: Alanine Aminotransferase 64 U/L (0-40); Albumin Level 4.2 g/dL (3.5-5.0); Alkaline Phosphatase 67 U/L (39-117); Anion Gap 12 (12-20); Aspartate Amino Transferase 59 U/L (5-37); Bilirubin Total 0.2 mg/dL (0.0-1.0); Blood Urea Nitrogen 18 mg/dL (9-16); Calcium 9.4 mg/dL (8.4-10.2); Carbon Dioxide 24 mmol/L (22-29); Chloride 108 mmol/L (96-108); Creatinine Clr Calc Pharmacy 134.8; Estimated Glomerular Filt Rate > 60; Glucose Random 90 mg/dL (60-115); Lipase 19 U/L (8-78); Potassium 3.9 mmol/L (3.3-5.1); Sodium 140 mmol/L (135-145); Total Protein 7.6 g/dL (6.5-8.0)
--- NOTE | 2023-12-21 22:39 | ED.ABDPAIN ---
HPI - Abdominal Pain General Chief Complaint: Abdominal Pain Stated Complaint: ABD PAIN Time Seen by Provider: 12/21/23 22:33 Source: patient Mode of arrival: ambulatory Limitations: no limitations History of Present Illness ED Provider: hansel ROGEL narrative: Patient's history of schizophrenia comes here for nonspecific abdominal pain does have history of constipation been here before for same pain is more localized to left upper abdomen no nausea no vomiting no fever no urinary symptoms Related Data Home Medications ?Medication ?Instructions ?Recorded ?Confirmed dextroamphetamine-amphetamine ER 15 mg PO DAILY 09/30/23 12/18/23 15 mg 24hr capsule,extend release (Adderall XR) divalproex 500 mg tablet,extended 2,000 mg PO BEDTIME 09/30/23 12/18/23 release 24 hr (Depakote ER) mirtazapine 7.5 mg tablet 7.5 mg PO BEDTIME 09/30/23 12/18/23 aripiprazole 30 mg tablet 30 mg PO DAILY 11/25/23 12/18/23 hydroxyzine pamoate 50 mg capsule 50 mg PO TID 11/26/23 12/18/23 melatonin 5 mg tablet 5 mg PO BEDTIME PRN Sleep 11/26/23 12/18/23 methylphenidate HCl 5 mg tablet 5 mg PO DAILY 12/18/23 12/18/23 Previous Rx's ?Medication ?Instructions ?Recorded docusate sodium 100 mg capsule 100 mg PO DAILY #30 caps 12/22/23 (Colace) Allergies Allergy/AdvReac Type Severity Reaction Status Date / Time No Known Allergies Allergy Verified 12/21/23 21:54 Review of Systems Review of Systems Yes all other systems are reviewed and are negative [facility] Social History Social History Use of substances other than those prescribed or required for medical reasons: No Advance Directives: No Advance Directives Information Provided: Yes Physical Exam ED Vital Signs: Vital Signs - 24 hr 12/21/23 21:48 12/22/23 00:46 12/22/23 00:52 Temperature 98.2 F 97.5 F 97.5 F Pulse Rate 103 H 70 70 Respiratory Rate 20 20 20 Blood Pressure 121/76 121/77 121/77 Pulse Oximetry 95 96 96 Oxygen Delivery Method Room Air Room Air Room Air 12/22/23 06:23 Temperature 97.8 F Pulse Rate 67 Respiratory Rate 18 Blood Pressure 111/60 Pulse Oximetry 95 Oxygen Delivery Method Room Air BMI result Body Mass Index 35.6 Appearance: Alert. Oriented X3. No acute distress. Eyes: No pallor or icterus ENT: Pharynx normal. Oral Mucosa moist Neck: Normal inspection. Neck supple. CVS: Normal heart rate and rhythm. Pulses normal. Respiratory: No respiratory distress. Equal air entry bilateral, no wheezing/rales/rhonchi Abdomen: Soft and mild deep tenderness left upper abdomen Bowel sounds are present, no mass palpable, no CVA tenderness Skin: Skin warm and dry. Normal skin color. Normal skin turgor. Neuro: Oriented X 3. Medical Decision Making Medical Decision Making [facility] Narrative: Patient with history of constipation left upper abdominal tenderness to deep palpation history of same in the past KUB showed stool will discharge patient home on Colace labs are negative Differential Diagnosis Differential Diagnoses: The differential diagnosis associated with the presentation includes Lab Data [facility] Lab Attestation statement: I reviewed the patient's lab results. 12/21/23 22:10 12/21/23 22:10 Labs: Lab Results 12/21/23 Range/Units 22:10 WBC 11.5 H (4.8-10.8) X10*3/uL RBC 4.84 (4.60-5.80) X10*6/uL Hgb 15.1 (14.0-18.0) g/dl Hct 43.8 (42.0-52.0) % MCV 90.5 (80.0-98.0) fL MCH 31.2 (27.0-33.0) pg MCHC 34.5 (31.0-36.0) g/dl RDW 13.2 (11.0-16.0) % Plt Count 189 (160-400) X10*3/uL MPV 9.8 (9.4-12.4) fL Immature Gran % (Auto) 0.3 (0.0-0.4) % Neut % (Auto) 70.4 (45-73) % Lymph % (Auto) 19.9 L (20-40) % Ware % (Auto) 8.8 (2-11) % Eos % (Auto) 0.3 (0-4) % Baso % (Auto) 0.3 (0-2) % Lymph # (Auto) 2.3 (1.2-4.9) X10*3/uL Ware # (Auto) 1.0 (0.1-1.2) X10*3/uL Eos # (Auto) 0.0 (0.0-0.4) X10*3/uL Baso # (Auto) 0.0 (0.0-0.2) X10*3/uL Abs Immat Gran (auto) 0.04 H (0.00-0.03) X10*3/uL Absolute Neuts (auto) 8.1 (2.0-8.3) x10*3/uL Absolute Nucleated RBC 0.000 (0.0-0.012) X10*3/uL Nucleated RBC % (auto) 0.0 (0.0-0.2) /100WBC Sodium 140 (135-145) mmol/L Potassium 3.9 (3.3-5.1) mmol/L Chloride 108 (96-108) mmol/L Carbon Dioxide 24 (22-29) mmol/L Anion Gap 12 (12-20) BUN 18 H (9-16) mg/dL Creatinine 0.79 (0.5-1.4) mg/dL Estim Creat Clear Calc 134.8 Estimated GFR > 60 Random Glucose 90 (60-115) mg/dL Calcium 9.4 (8.4-10.2) mg/dL Total Bilirubin 0.2 (0.0-1.0) mg/dL AST 59 H (5-37) U/L ALT 64 H (0-40) U/L Alkaline Phosphatase 67 (39-117) U/L Total Protein 7.6 (6.5-8.0) g/dL Albumin 4.2 (3.5-5.0) g/dL Lipase 19 (8-78) U/L Urine Color Yellow Urine Appearance Clear Urine pH 6.0 (5.0-9.0) Ur Specific [place] >= 1.030 H (1.005-1.025) Urine Protein Negative (Neg-Trace) mg/dL Urine Glucose (UA) Negative (Negative) mg/dL Urine Ketones 15 (Negative) mg/dL Urine Blood Negative (Negative) Urine Nitrite Negative (Negative) Ur Leukocyte Esterase Negative (Negative) Independent Interpretation I performed an independent interpretation of an: Plain X-Ray Radiology Impression Discussion of test interpretation with radiology: I have reviewed the radiologist's reading. Radiologist Impression: [address] [address] XRay Report Signed Patient: Todd Toussaint MR#: [id number] : 01/20/2019 Acct:[id number] [age]/Sex: 4Y 11M / M ADM Date: 12/21/23 Loc: HO.ED Attending Dr: Ordering Physician: Hany Grewal MD Date of Service: 12/21/23 Procedure(s): XR foot RT min 3V Accession Number(s): [id number] cc: Viktor Blankenship MD; Hany Grewal MD~ EXAMINATION: XR FOOT, RIGHT CLINICAL INFORMATION: Injury. Pain. COMPARISON: None available. TECHNIQUE: AP, lateral, and oblique views of the right foot. FINDINGS: The bone mineralization is normal. There is a mildly displaced fracture through the metadiaphyseal region proximal first metatarsal with associated soft tissue swelling. The joint spaces are maintained. No other fracture is seen. XR/XR foot RT min 3V IMPRESSION: Mildly displaced fracture through the metadiaphyseal region of the proximal first metatarsal. Electronically signed by: Kaiser Locke MD 12/22/2023 01:25 AM EDT Medications Administered Discontinued Medications Generic Name Dose Route Start Last Admin Trade Name Freq PRN Reason Stop Dose Admin Magnesium Hydroxide 30 ml 12/21/23 22:58 12/21/23 23:31 Milk Of Magnesia 30 Ml Oral.Susp PO 12/21/23 22:59 30 ml NOW STA Administration Discharge Plan Discharge Clinical Impression: Constipation Patient Disposition: Home, Self-Care Instructions: Constipation (ED) Additional Instructions: Take stool softener as needed daily for constipation Your x-ray showed large amount of stool in your abdomen as the cause for the pain Prescriptions: New docusate sodium [Colace] 100 mg capsule 100 mg PO DAILY Qty: 30 0RF No Action divalproex [Depakote ER] 500 mg Tablet Extended Release 24 Hr 2,000 mg PO BEDTIME dextroamphetamine-amphetamine [Adderall XR] 15 mg Capsule,Extended Release 24hr 15 mg PO DAILY mirtazapine 7.5 mg Tablet 7.5 mg PO BEDTIME aripiprazole 30 mg tablet 30 mg PO DAILY hydroxyzine pamoate 50 mg capsule 50 mg PO TID melatonin 5 mg Tablet 5 mg PO BEDTIME PRN (Reason: Sleep) methylphenidate HCl 5 mg tablet 5 mg PO DAILY Interventions: ED Discharge Assessment Last Done: 12/22/23 00:52 Print Language: Portuguese
--- NOTE | 2023-12-21 22:40 | PC.NURSE ---
patient reports he had pizza for breakfast this morning and ever since then he has been having LUQ abd pain and nausea and vomiting. Pt denies diarrhea but states had a hard stool yestday brown in color with no blood noted.
[2023-12-21] MEDS: Milk of Magnesia 30 ML ORAL.SUSP PO (23:31)
--- NOTE | 2023-12-21 23:33 | PC.NURSE ---
Took over care from RnRadha at 23:00, medicated per apr, pt resting in stretcher, no sign of distress
--- NOTE | 2023-12-22 00:24 | PC.NURSE ---
T/W spoke to animal husbandry worker who stated he will get in contact with Jonatan the supervisor waterproofing for Pt transport back. Person reports he will call back with update.
[2023-12-22 00:46] VITALS: BP 121/77; PULSE 70; RESP 20; TEMP 36.4; O2SAT 96
[2023-12-22 00:52] VITALS: BP 121/77; PULSE 70; RESP 20; TEMP 36.4; O2SAT 96
--- NOTE | 2023-12-22 01:09 | PC.NURSE ---
Mutiliple attempt to call prison, and manager division of prison, no answer, did attempt to contact family also, no answer , voice mail left.
[2023-12-22 06:23] VITALS: BP 111/60; PULSE 67; RESP 18; TEMP 36.6; O2SAT 95
--- NOTE | 2023-12-22 06:39 | PC.NURSE ---
Attempt to call half-way today with no answer.
--- NOTE | 2023-12-22 06:40 | PC.NURSE ---
manager union number is not in service.
--- NOTE | 2023-12-22 06:42 | PC.NURSE ---
attempt to call primary contact, no one answering phone, going to voicemail.
--- NOTE | 2023-12-22 07:04 | PC.NURSE ---
This health underwriter spoke to Jonathan staff from [facility] ([phone]) who states we have not got in touch with our superior since last night, day staff is more aware of what to do and we are waiting on them . T/W informed staff to call [facility] regarding updates.
--- NOTE | 2023-12-22 07:43 | PC.NURSE ---
pt sitting upright eating breakfast and watching at this time. denies any abd pain/n/v. has no complaints. attempted to call primary contact as well as correction but no response at this time. will reattempt. shortly. no sob/wob noted. respirations even/unlabored. call davis placed within reach.
--- NOTE | 2023-12-22 08:17 | PC.NURSE ---
Jonatan - penitentiary website designer - [facility] phone number - [phone]
--- NOTE | 2023-12-22 08:33 | PC.NURSE ---
this RN spoke w/ cee at longterm in regards to patient being discharged/having transportation arranged. per cee, pt will not have transportation available until between [phone] this morning. site manage/longterm house phone number also provided by cee. charge out clerk made aware of transportation ETA.
[2023-12-22 10:37] VITALS: BP 110/71; PULSE 85; RESP 16; TEMP 36.8; O2SAT 98
--- NOTE | 2023-12-22 10:49 | PC.NURSE ---
staff from [facility] still not present at this time. basilia (public relations manager) from [facility] contacted but phone states that it is not in service. this RN then spoke w/ staff member at [facility]. per staff member, there were multiple call outs at [facility] where they are now understaffed. d/t patient having restrictions w/ female staff, there is no one that is able to provide transportation at this time. address confirmed in chart. ambulance will be booked for transportation back to the [facility] at this time. ETA unknown.
--- NOTE | 2023-12-22 11:14 | PC.NURSE ---
transportation cancelled at [facility] staff picked pt up. pt leaving facility at this time.
[2023-12-22 11:15] VITALS: BP 110/71; PULSE 85; RESP 16; TEMP 36.8; O2SAT 98
== END 2023-12-22 11:15 | disposition home or self-care (01) ==
PROVIDERS: Emergency Provider Internal Medicine
DX: K59.00 Constipation, unspecified (principal); R10.12 Left upper quadrant pain; Z79.899 Other long term (current) drug therapy
CPT/HCPCS: 36415; 74018; 80053; 81003; 83690; 85025; 99283; 99284

== ENCOUNTER 2024-02-04 21:52 | Emergency (ER) | payer OTHER, SELFPAY ==
[2024-02-04 22:05] VITALS: BP 146/83; PULSE 100; PULSE 129; RESP 18; TEMP 37.1; O2SAT 95; BMI 32.9
[2024-02-04 22:43] LABS: MANUAL DIFF FLAG NO
[2024-02-04 22:45] LABS: Basophils Percent Auto 0.4 % (0-2); Eosinophils Percent Auto 0.4 % (0-4); Hemoglobin 15.8 g/dl (14.0-18.0); Imm Gran Abs Auto 0.03 X10*3/uL (0.00-0.03); Imm Gran Pct Auto 0.3 % (0.0-0.4); Lymphocytes Absolute Auto 2.2 X10*3/uL (1.2-4.9); Lymphocytes Percent Auto 23.5 % (20-40); Mean Corpuscular HGB Conc 33.6 g/dl (31.0-36.0); Mean Corpuscular Hemoglobin 30.4 pg (27.0-33.0); Mean Corpuscular Volume 90.6 fL (80.0-98.0); Mean Platelet Volume 9.8 fL (9.4-12.4); Monocytes Absolute Auto 0.7 X10*3/uL (0.1-1.2); Monocytes Percent Auto 7.2 % (2-11); Neutrophils Absolute Auto 6.2 x10*3/uL (2.0-8.3); Neutrophils Percent Auto 68.2 % (45-73); Platelet Count 196 X10*3/uL (160-400); Red Blood Count 5.19 X10*6/uL (4.60-5.80); Red Cell Distribution Width 12.7 % (11.0-16.0); White Blood Count 9.2 X10*3/uL (4.8-10.8)
[2024-02-04 22:55] LABS: Valproate 69.1 mcg/mL (50.0-100.0)
[2024-02-04 22:56] LABS: Amphetamine Screen Urine POSITIVE (Not Detect); Barbiturates, Urine Not Detected (Not Detect); Benzodiazepines Screen Urine Not Detected (Not Detect); Buprenorphine Scr Not Detected (Not Detect); Cannabinoid Screen Urine Not Detected (Not Detect); Cocaine Screen Urine Not Detected (Not Detect); Fentanyl, urine Not Detected (Not Detect); Methadone Screen, Urine Not Detected (Not Detect); Opiate Screen Urine Not Detected (Not Detect); Oxycodone Screen Urine Not Detected (Not Detect); Phencyclidine Screen Urine Not Detected (Not Detect)
[2024-02-04 22:59] LABS: Alanine Aminotransferase 64 U/L (0-40); Albumin Level 4.2 g/dL (3.5-5.0); Alkaline Phosphatase 64 U/L (39-117); Anion Gap 13 (12-20); Aspartate Amino Transferase 53 U/L (5-37); Bilirubin Total 0.3 mg/dL (0.0-1.0); Blood Urea Nitrogen 14 mg/dL (9-16); Calcium 9.4 mg/dL (8.4-10.2); Carbon Dioxide 23 mmol/L (22-29); Chloride 106 mmol/L (96-108); Creatinine Clr Calc Pharmacy 98.5; Estimated Glomerular Filt Rate > 60; Ethanol < 10 mg/dL; Glucose Random 143 mg/dL (60-115); Potassium 3.7 mmol/L (3.3-5.1); Sodium 138 mmol/L (135-145); Total Protein 7.7 g/dL (6.5-8.0)
[2024-02-04 23:08] VITALS: BP 119/69; PULSE 114; RESP 17; TEMP 37; O2SAT 95
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
[2024-02-04] MEDS: Amoxicillin/Potassium Clav 875 MG TABLET PO (23:31)
[2024-02-04] MEDS: Ibuprofen 600 MG TABLET PO (23:31)
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
[2024-02-05 06:58] VITALS: RESP 16
--- NOTE | 2024-02-05 06:59 | PC.NURSE ---
Assumed care of patient at 0645, patient appears to be in no apparent distress this am, ambulating with steady gait around bh pod. Pt verbalizes understanding of plan for CARE team es
--- NOTE | 2024-02-05 08:47 | PC.NURSE ---
Patient upset with staff that he cannot stay to go inpatient, he is currently refusing all medications
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
--- NOTE | 2024-02-05 09:43 | MHC.CARE ---
Pt does not meet the criteria for IPLOC and does not present as an imminent risk. This is Pt's baseline in his correction setting. skilled nursing senior database programmer is an agreement with disposition and they will pick Pt up at 2pm. ED provider in agreement with disposition.
--- NOTE | 2024-02-05 13:49 | MHC.CARE ---
Call from manager statistics, Negar, she stated patient is a 2:1 for transportation and will pick him up at 2:45-3:00.
[2024-02-05 14:22] VITALS: RESP 16
[2024-02-05 14:47] VITALS: BP 126/88; PULSE 78; RESP 14; TEMP 36.3; O2SAT 99
== END 2024-02-05 14:48 | disposition home or self-care (01) ==
PROVIDERS: Nurse Practitioner Family; Emergency Provider Emergency Medicine
DX: S61.451A Open bite of right hand, initial encounter (principal); F25.9 Schizoaffective disorder, unspecified; M79.641 Pain in right hand; W50.3XXA Accidental bite by another person, initial encounter; Y93.89 Activity, other specified; Y92.89 Other specified places as the place of occurrence of the external cause; Y99.8 Other external cause status; Z51.81 Encounter for therapeutic drug level monitoring; Z79.899 Other long term (current) drug therapy
CPT/HCPCS: 36415; 80053; 80164; 80307; 85025; 99285

== ENCOUNTER 2024-02-08 22:52 | Emergency (ER) | payer OTHER, SELFPAY ==
--- NOTE | 2024-02-08 | ECG_ITS ---
Test Reason : CP Blood Pressure : / mmHG Vent. Rate : 096 BPM Atrial Rate : 096 BPM P-R Int : 152 ms QRS Dur : 106 ms QT Int : 344 ms P-R-T Axes : 047 068 037 degrees QTc Int : 434 ms Normal sinus rhythm Normal ECG No previous ECGs available Referred By: Generic ED Physician Electronically Signed By:LEONOR HAJI MD
--- NOTE | ~2024-02-08 | XR_ITS ---
EXAMINATION: XR CHEST CLINICAL INFORMATION: pain COMPARISON: 11/18/2023 TECHNIQUE: 2 views of the chest were obtained. FINDINGS: No significant abnormality is noted involving the heart, lungs, mediastinum, bony thorax or soft tissues. XR/XR chest 2V IMPRESSION: Unremarkable examination. Electronically signed by: Hernan Wiggins MD 02/09/2024 12:01 AM [facility] - [place]
--- NOTE | ~2024-02-08 | CT_ITS ---
EXAMINATION: CT ABDOMEN AND PELVIS WITH CONTRAST CLINICAL INFORMATION: Abdominal pain. COMPARISON: None available. TECHNIQUE: Multidetector volumetric images were obtained from the superior aspect of the liver through the pubic symphysis following administration 85 mL of Omnipaque 350 intravenous contrast. Sagittal and coronal reformatted images were obtained on the technologist's workstation. Oral contrast: No This CT examination was performed using dose optimization techniques as appropriate, variously including the following: *Automated exposure control *Adjustment of mA and/or kV according to patient size (this includes techniques or standardized protocols for targeted exams where dose is matched to indication/reason for exam; i.e. extremities or head) *Use of iterative reconstruction technique DLP: 623 mGy-cm FINDINGS: LUNG BASES: The visualized lung bases are unremarkable. LIVER, GALLBLADDER, AND BILIARY TREE: The liver is normal in size, shape, and attenuation. No focal hepatic lesion or biliary ductal dilatation is present. Decompressed PANCREAS: Unremarkable. SPLEEN: Unremarkable. ADRENAL GLANDS: Unremarkable. KIDNEYS AND URETERS: The kidneys are normal in size, shape, and attenuation. No hydronephrosis, hydroureter, or calculi seen. No perinephric stranding. BLADDER: Unremarkable. GASTROINTESTINAL TRACT: Normal appearance of the appendix. No free intraperitoneal fluid or gas collections. Normal appearance of the terminal ileum. No intestinal dilatation or mural thickening. No inflammatory changes of the sigmoid mesentery or small bowel mesentery. Overall appearance of the stomach and duodenum. ABDOMINAL WALL: No significant hernia is appreciated. LYMPH NODES: Normal. VASCULAR: Unremarkable. PELVIC VISCERA: Normal appearance of the prostate and seminal vesicles OSSEOUS STRUCTURES: No suspicious skeletal abnormalities. Incidental limbus deformity of the inferior margin of the T9 vertebral body. CT/CT abdomen pelvis w IV con IMPRESSION: Normal IV contrast enhanced CT of the abdomen and pelvis. Normal appendix. Normal terminal ileum. No free intraperitoneal fluid or gas collections. Normal appearance of the kidneys. No urolithiasis. Electronically signed by: Ryder Sauer MD 02/09/2024 02:45 AM [facility]
[2024-02-08 22:59] VITALS: BP 142/76; PULSE 107; O2SAT 99
[2024-02-08 23:09] VITALS: BP 128/84; PULSE 90; RESP 18; TEMP 36.7; O2SAT 94; BMI 36.1
--- NOTE | 2024-02-08 23:17 | ED.CHESTPAIN ---
HPI - Chest Pain General Chief Complaint: Chest Pain Stated Complaint: chest pain,sob from correction Time Seen by Provider: 02/08/24 23:16 Source: patient Limitations: other (Intellectual disability, autism, mood disorder, adjustment disorder) History of Present Illness ED Provider: Lina sparks PA-C HPI narrative: 23-year-old male with a history of autism, intellectual disorder, mood disorder, adjustment disorder, presents from correction with chest pain x2 days. Pain is primarily over substernal region and right upper quadrant, with radiation up into chest. Patient unable to describe the nature of his discomfort. Associated nausea vomiting diarrhea. Patient states ?I do not feel good?. Patient does not know if he has been around other people that have been sick with the same symptoms. Patient does not know if he has had a fever. Related Data Home Medications ?Medication ?Instructions ?Recorded ?Confirmed dextroamphetamine-amphetamine ER 15 mg PO DAILY 09/30/23 02/04/24 15 mg 24hr capsule,extend release (Adderall XR) divalproex 500 mg tablet,extended 2,000 mg PO BEDTIME 09/30/23 02/04/24 release 24 hr (Depakote ER) mirtazapine 7.5 mg tablet 7.5 mg PO BEDTIME 09/30/23 02/04/24 aripiprazole 30 mg tablet 30 mg PO DAILY 11/25/23 02/04/24 melatonin 5 mg tablet 5 mg PO BEDTIME PRN Sleep 11/26/23 02/04/24 dextroamphetamine-amphetamine 5 mg 1 tab PO QNOON 02/04/24 02/04/24 tablet olanzapine 5 mg tablet 5 mg PO Q6H PRN Agitation 02/04/24 02/04/24 trazodone 50 mg tablet 50 mg PO BEDTIME PRN Insomnia 02/04/24 02/04/24 Previous Rx's ?Medication ?Instructions ?Recorded docusate sodium 100 mg capsule 100 mg PO DAILY #30 caps 12/22/23 (Colace) amoxicillin 875 mg-potassium 1 tab PO BID #14 tabs 02/05/24 clavulanate 125 mg tablet Allergies Allergy/AdvReac Type Severity Reaction Status Date / Time No Known Allergies Allergy Verified 02/08/24 23:11 Review of Systems Review of Systems: Yes all other systems are reviewed and are negative Constitutional: Constitutional: Denies fatigue and Denies fever(s) Cardiovascular: Cardiovascular: Reports chest pain and Denies dyspnea Respiratory: Respiratory: Denies cough and Denies dyspnea Gastrointestinal: Gastrointestinal: Reports abdominal pain, Reports diarrhea, Reports nausea and Reports vomiting Endocrine: Endocrine: Denies fatigue PMF Past Medical History Attestation statement: The following information was validated with the patient. Social History Social History Advance Directives: No Advance Directives Information Provided: Yes Physical Exam Vital Signs: Vital Signs: Last Vital Signs Temp 98.0 F 02/08/24 23:09 Pulse 90 02/08/24 23:09 Resp 18 02/08/24 23:09 BP 128/84 02/08/24 23:09 Pulse Ox 94 02/08/24 23:09 O2 Del Method Room Air 02/08/24 23:09 BMI result Body Mass Index 36.1 Const: Other: Awake Orientation/consciousness: patient oriented x3 Resp: Other: Nonlabored respirations Cardio: Other: Normal peripheral perfusion GI: Other: Abdomen is soft, nondistended, obese, tenderness noted across the entire upper abdomen, right greater than left, with out guarding Skin: Other: Warm dry no rash Neuro: General: patient oriented x3, no focal motor deficits and CN's II-XI intact bilaterally Psych: Other: Cooperative, flat affect Course Course Course Narrative: Signed out to the night team pending CT scan and final disposition Medications Administered Discontinued Medications Generic Name Dose Route Start Last Admin Trade Name Freq PRN Reason Stop Dose Admin Iohexol 85 ml 02/09/24 01:42 02/09/24 01:42 Iohexol 350 Mg/Ml 100 Ml Infus..Btl IV 02/09/24 01:43 85 ml ONCE ONE Administration Medical Decision Making Medical Decision Making [facility] Narrative: 23-year-old male with a history of autism, intellectual disorder, mood disorder, adjustment disorder, presents from correction with chest pain x2 days. Pain is primarily over substernal region and right upper quadrant, with radiation up into chest. Patient unable to describe the nature of his discomfort. Associated nausea vomiting diarrhea. Patient states ?I do not feel good?. Patient does not know if he has been around other people that have been sick with the same symptoms. Patient does not know if he has had a fever. Problem: Intellectual disorder History: Per patient I have considered the following differential diagnoses: Viral gastroenteritis, diverticulitis, C diff, biliary colic, cholecystitis Plan: Given the distribution of discomfort I am considering underlying cholecystitis versus biliary colic. We do not have the capacity to obtain an ultrasound I am obtaining a CT scan. We will be giving IV fluid Toradol and Zofran. Screening labs were already obtained and are unremarkable. This could also just be viral gastroenteritis, such illness has been prevalent within the community. Thought about C diff, however his symptoms just started yesterday, he has no known risk factors to develop C diff. thought about diverticulitis, however there was no focal left lower quadrant pain. Given the patient's disability, I believe his chief complaint was lost in translation, he is not having chest pain he is having abdominal pain. Thus EKG chest x-ray and troponin were obtained. I have independently reviewed the following tests: Labs: No leukocytosis, not anemic, no electrolyte abnormality , troponin negative EKG: Normal sinus rhythm, rate of 96, no ischemic changes no ectopy, QTC 434 Chest x-ray: XR/XR chest 2V IMPRESSION: Unremarkable examination. Electronically signed by: Hernan Wiggins MD 02/09/2024 12:01 AM [facility] [place]: Lab Data 02/08/24 23:38 02/08/24 23:38 Labs: Lab Results 02/08/24 Range/Units 23:38 WBC 8.6 (4.8-10.8) X10*3/uL RBC 4.88 (4.60-5.80) X10*6/uL Hgb 15.1 (14.0-18.0) g/dl Hct 43.8 (42.0-52.0) % MCV 89.8 (80.0-98.0) fL MCH 30.9 (27.0-33.0) pg MCHC 34.5 (31.0-36.0) g/dl RDW 12.7 (11.0-16.0) % Plt Count 181 (160-400) X10*3/uL MPV 9.6 (9.4-12.4) fL Immature Gran % (Auto) 0.2 (0.0-0.4) % Neut % (Auto) 59.8 (45-73) % Lymph % (Auto) 28.1 (20-40) % [place] % (Auto) 10.6 (2-11) % Eos % (Auto) 0.8 (0-4) % Baso % (Auto) 0.5 (0-2) % Lymph # (Auto) 2.4 (1.2-4.9) X10*3/uL [place] # (Auto) 0.9 (0.1-1.2) X10*3/uL Eos # (Auto) 0.1 (0.0-0.4) X10*3/uL Baso # (Auto) 0.0 (0.0-0.2) X10*3/uL Abs Immat Gran (auto) 0.02 (0.00-0.03) X10*3/uL Absolute Neuts (auto) 5.1 (2.0-8.3) x10*3/uL Absolute Nucleated RBC 0.000 (0.0-0.012) X10*3/uL Nucleated RBC % (auto) 0.0 (0.0-0.2) /100WBC Sodium 142 (135-145) mmol/L Potassium 3.6 (3.3-5.1) mmol/L Chloride 108 (96-108) mmol/L Carbon Dioxide 24 (22-29) mmol/L Anion Gap 14 (12-20) BUN 11 (9-16) mg/dL Creatinine 0.73 (0.5-1.4) mg/dL Estim Creat Clear Calc 151.3 Estimated GFR > 60 Random Glucose 104 (60-115) mg/dL Calcium 9.1 (8.4-10.2) mg/dL Magnesium 1.9 (1.6-2.6) mg/dL Total Bilirubin 0.3 (0.0-1.0) mg/dL AST 49 H (5-37) U/L ALT 62 H (0-40) U/L Alkaline Phosphatase 59 (39-117) U/L Troponin I High Sens < 2.7 (<3.5-35.0) ng/L Total Protein 7.2 (6.5-8.0) g/dL Albumin 3.9 (3.5-5.0) g/dL Lipase 25 (8-78) U/L Discharge Plan Discharge Clinical Impression: Abdominal pain Patient Disposition: Still a Patient Instructions: Abdominal Pain (ED) Prescriptions: No Action docusate sodium [Colace] 100 mg capsule 100 mg PO DAILY Qty: 30 0RF dextroamphetamine-amphetamine 5 mg tablet 1 tab PO QNOON trazodone 50 mg tablet 50 mg PO BEDTIME PRN (Reason: Insomnia) olanzapine 5 mg tablet 5 mg PO Q6H PRN (Reason: Agitation) amoxicillin-pot clavulanate 875-125 mg tablet 1 tab PO BID Qty: 14 0RF divalproex [Depakote ER] 500 mg Tablet Extended Release 24 Hr 2,000 mg PO BEDTIME dextroamphetamine-amphetamine [Adderall XR] 15 mg Capsule,Extended Release 24hr 15 mg PO DAILY mirtazapine 7.5 mg Tablet 7.5 mg PO BEDTIME aripiprazole 30 mg tablet 30 mg PO DAILY melatonin 5 mg Tablet 5 mg PO BEDTIME PRN (Reason: Sleep) Print Language: French
[2024-02-08 23:45] LABS: MANUAL DIFF FLAG NO
[2024-02-08 23:48] LABS: Basophils Percent Auto 0.5 % (0-2); Eosinophils Absolute Auto 0.1 X10*3/uL (0.0-0.4); Eosinophils Percent Auto 0.8 % (0-4); Hematocrit 43.8 % (42.0-52.0); Hemoglobin 15.1 g/dl (14.0-18.0); Imm Gran Abs Auto 0.02 X10*3/uL (0.00-0.03); Imm Gran Pct Auto 0.2 % (0.0-0.4); Lymphocytes Absolute Auto 2.4 X10*3/uL (1.2-4.9); Lymphocytes Percent Auto 28.1 % (20-40); Mean Corpuscular HGB Conc 34.5 g/dl (31.0-36.0); Mean Corpuscular Hemoglobin 30.9 pg (27.0-33.0); Mean Corpuscular Volume 89.8 fL (80.0-98.0); Mean Platelet Volume 9.6 fL (9.4-12.4); Monocytes Absolute Auto 0.9 X10*3/uL (0.1-1.2); Monocytes Percent Auto 10.6 % (2-11); Neutrophils Absolute Auto 5.1 x10*3/uL (2.0-8.3); Neutrophils Percent Auto 59.8 % (45-73); Platelet Count 181 X10*3/uL (160-400); Red Blood Count 4.88 X10*6/uL (4.60-5.80); Red Cell Distribution Width 12.7 % (11.0-16.0); White Blood Count 8.6 X10*3/uL (4.8-10.8)
[2024-02-09 00:10] LABS: Alanine Aminotransferase 62 U/L (0-40); Albumin Level 3.9 g/dL (3.5-5.0); Alkaline Phosphatase 59 U/L (39-117); Anion Gap 14 (12-20); Aspartate Amino Transferase 49 U/L (5-37); Bilirubin Total 0.3 mg/dL (0.0-1.0); Blood Urea Nitrogen 11 mg/dL (9-16); Calcium 9.1 mg/dL (8.4-10.2); Carbon Dioxide 24 mmol/L (22-29); Chloride 108 mmol/L (96-108); Creatinine Clr Calc Pharmacy 151.3; Estimated Glomerular Filt Rate > 60; Glucose Random 104 mg/dL (60-115); Lipase 25 U/L (8-78); Magnesium 1.9 mg/dL (1.6-2.6); Potassium 3.6 mmol/L (3.3-5.1); Sodium 142 mmol/L (135-145); Total Protein 7.2 g/dL (6.5-8.0)
[2024-02-09 00:15] LABS: Troponin-I High Sensitivity < 2.7 ng/L (<3.5-35.0)
[2024-02-09] MEDS: iohexoL 350 MG/ML 100 ML INFUS..BTL 85 ML IV (01:42)
[2024-02-09] MEDS: Ketorolac Tromethamine 15 MG/ML VIAL IVPUSH (02:04)
[2024-02-09] MEDS: 0.9 % Sodium Chloride 1,000 ML 999 ML IV (02:04)
[2024-02-09] MEDS: ondansetron HCL 4 MG/2 ML VIAL IVPUSH (02:05)
[2024-02-09 03:29] VITALS: BP 111/75; PULSE 75; RESP 15
--- NOTE | 2024-02-09 06:24 | PC.NURSE ---
Spoke with long-term staff Guy and reports days shift staff will sweet pickle maker. When asked around what time, staff stated [phone].
[2024-02-09 07:18] VITALS: BP 111/63; PULSE 71; RESP 15; O2SAT 98
[2024-02-09 10:40] VITALS: BP 113/61; PULSE 79; RESP 15; TEMP 36.6; O2SAT 97
== END 2024-02-09 10:41 | disposition home or self-care (01) ==
PROVIDERS: Physician Assistant Medical; Emergency Provider Emergency Medicine
DX: R07.9 Chest pain, unspecified (principal); R10.11 Right upper quadrant pain; F84.0 Autistic disorder; Z79.899 Other long term (current) drug therapy
CPT/HCPCS: 36415; 71046; 74177; 80053; 83690; 83735; 84484; 85025; 93005; 96361; 96374; 96375; 99284; J1885; J2405; Q9967

== ENCOUNTER → 2024-02-08 23:00 | Outpatient (BNV) | payer OTHER, SELFPAY | PROVIDERS: Emergency Provider Emergency Medicine; Visit Provider Internal Medicine Cardiovascular Disease | DX: R07.9 Chest pain, unspecified (principal) | CPT/HCPCS: 93010 ==

== ENCOUNTER 2024-02-22 21:01 | Emergency (ER) | payer OTHER, SELFPAY ==
[2024-02-22 21:14] VITALS: BP 184/108; PULSE 115; O2SAT 100
[2024-02-22 21:36] VITALS: BP 119/71; PULSE 95; RESP 18; TEMP 36.7; O2SAT 95; BMI 34.8
[2024-02-22 22:37] LABS: Influenza A PCR NEGATIVE (Negative); Influenza B PCR NEGATIVE (Negative); Resp Syncy Virus RNA Qual PCR NEGATIVE (Negative); SARS COV2 PCR INHOUSE NEGATIVE (Negative)
[2024-02-22 23:57] VITALS: BP 124/77; PULSE 94; RESP 18; TEMP 37.2; O2SAT 95
--- NOTE | 2024-02-23 00:12 | ED_ITS ---
HPI - General Adult General Chief complaint: General Medical Stated complaint: abd pain,nausea,body aches, from grp home Time Seen by Provider: 02/23/24 00:12 Source: patient Limitations: other (Intellectual disorder) History of Present Illness ED Provider: Lina Hanley PA-C HPI narrative: 23-year-old male with a history of autism, intellectual disorder, mood disorder, adjustment disorder, presents from intermediate with diffuse body aches, cough and nausea x1 day. Patient just started to have diarrhea, he has a another sick contact in the intermediate with similar symptoms. Denies abdominal pain or known fever. Patient is requesting to eat at this time. Related Data Home Medications ?Medication ?Instructions ?Recorded ?Confirmed dextroamphetamine-amphetamine ER 15 mg PO DAILY 09/30/23 02/04/24 15 mg 24hr capsule,extend release (Adderall XR) divalproex 500 mg tablet,extended 2,000 mg PO BEDTIME 09/30/23 02/04/24 release 24 hr (Depakote ER) mirtazapine 7.5 mg tablet 7.5 mg PO BEDTIME 09/30/23 02/04/24 aripiprazole 30 mg tablet 30 mg PO DAILY 11/25/23 02/04/24 melatonin 5 mg tablet 5 mg PO BEDTIME PRN Sleep 11/26/23 02/04/24 dextroamphetamine-amphetamine 5 mg 1 tab PO QNOON 02/04/24 02/04/24 tablet olanzapine 5 mg tablet 5 mg PO Q6H PRN Agitation 02/04/24 02/04/24 trazodone 50 mg tablet 50 mg PO BEDTIME PRN Insomnia 02/04/24 02/04/24 Previous Rx's ?Medication ?Instructions ?Recorded docusate sodium 100 mg capsule 100 mg PO DAILY #30 caps 12/22/23 (Colace) amoxicillin 875 mg-potassium 1 tab PO BID #14 tabs 02/05/24 clavulanate 125 mg tablet ondansetron HCl 4 mg tablet 4 mg PO Q8H PRN nausea and 02/23/24 vomiting #10 tabs Allergies Allergy/AdvReac Type Severity Reaction Status Date / Time No Known Allergies Allergy Verified 02/22/24 21:37 Review of Systems Review of Systems: Yes all other systems are reviewed and are negative Constitutional: Constitutional: Denies fatigue and Denies fever(s) Cardiovascular: Cardiovascular: Denies chest pain and Denies dyspnea Respiratory: Respiratory: Reports cough and Denies dyspnea Gastrointestinal: Gastrointestinal: Denies abdominal pain, Reports diarrhea, Reports nausea and Reports vomiting Musculoskeletal: Musculoskeletal: Reports myalgias Endocrine: Endocrine: Denies fatigue PMFSH Past Medical History Attestation statement: The following information was validated with the patient. Social History Social History Smoked in Last 30 Days: No Use of substances other than those prescribed or required for medical reasons: No Advance Directives: No Advance Directives Information Provided: No Do you have a plan to hurt others: No Plan Physical Exam ED Vital Signs: Vital Signs - 24 hr 02/22/24 21:36 02/22/24 23:57 Temperature 98.0 F 98.9 F Pulse Rate 95 94 Respiratory Rate 18 18 Blood Pressure 119/71 124/77 Pulse Oximetry 95 95 Oxygen Delivery Method Room Air Room Air BMI result Body Mass Index 34.8 Const Other: Awake Orientation/consciousness: patient oriented x3 Resp Effort & Inspection: normal respiratory effort Cardio Other: Normal peripheral perfusion GI Other: Abdomen is soft, nondistended nontender Skin Other: Warm dry no rash Neuro General: patient oriented x3, no focal motor deficits and CN's II-XI intact bilaterally Psych Other: Cooperative, flat affect Course Reevaluation(s) Reevaluation #1: Eating drinking we will discharge Time: 01:02 Medications Administered Discontinued Medications Generic Name Dose Route Start Last Admin Trade Name Freq PRN Reason Stop Dose Admin Ketorolac Tromethamine 15 mg 02/23/24 00:14 02/23/24 00:26 Ketorolac Tromethamine 15 Mg/Ml Vial IM 02/23/24 00:15 15 mg ONCE ONE Administration Ondansetron HCl 8 mg 02/23/24 00:14 02/23/24 00:26 Ondansetron Odt 8 Mg Tab.Rapdis TRANSLINGU 02/23/24 00:15 8 mg ONCE ONE Administration Medical Decision Making Medical Decision Making MDM Narrative: 23-year-old male with a history of autism, intellectual disorder, mood disorder, adjustment disorder, presents from intermediate with diffuse body aches, cough and nausea x1 day. Patient just started to have diarrhea, he has a another sick contact in the intermediate with similar symptoms. Denies abdominal pain or known fever. Patient is requesting to eat at this time. Problem: Psychiatric illness, intellectual disorder History: Per patient I have considered the following differential diagnoses: Viral gastroenteritis, acute intra-abdominal pathology, pneumonia Plan: Viral panel was obtained from triage and is negative, I do not think he requires any additional labs, he has been here for several hours, he has had no active GI symptoms. We will treat with Zofran and Toradol, we are already p.o. challenging him. I have independently reviewed the following tests: Labs: Viral panel negative Lab Data Labs: Lab Results 02/22/24 Range/Units 21:43 Influenza Type A (PCR) NEGATIVE (Negative) Influenza Type B (PCR) NEGATIVE (Negative) RSV RNA Qual (PCR) NEGATIVE (Negative) SARS-CoV-2 RNA (RT-PCR) NEGATIVE (Negative) Discharge Plan Discharge Clinical Impression: Nonspecific syndrome suggestive of viral illness, Nausea & vomiting Patient Disposition: Home, Self-Care Instructions: Acute Nausea and Vomiting (ED), Viral Syndrome (ED) Additional Instructions: You likely have a virus causing your symptoms, see home care instructions. Use the Zofran as needed for nausea vomiting. The viral panel was negative for COVID, influenza, RSV. Follow up with your primary care provider next week. Prescriptions: New ondansetron HCl 4 mg tablet 4 mg PO Q8H PRN (Reason: nausea and vomiting) Qty: 10 0RF No Action docusate sodium [Colace] 100 mg capsule 100 mg PO DAILY Qty: 30 0RF dextroamphetamine-amphetamine 5 mg tablet 1 tab PO QNOON trazodone 50 mg tablet 50 mg PO BEDTIME PRN (Reason: Insomnia) olanzapine 5 mg tablet 5 mg PO Q6H PRN (Reason: Agitation) amoxicillin-pot clavulanate 875-125 mg tablet 1 tab PO BID Qty: 14 0RF divalproex [Depakote ER] 500 mg Tablet Extended Release 24 Hr 2,000 mg PO BEDTIME dextroamphetamine-amphetamine [Adderall XR] 15 mg Capsule,Extended Release 24hr 15 mg PO DAILY mirtazapine 7.5 mg Tablet 7.5 mg PO BEDTIME aripiprazole 30 mg tablet 30 mg PO DAILY melatonin 5 mg Tablet 5 mg PO BEDTIME PRN (Reason: Sleep) Print Language: Romanian
[2024-02-23] MEDS: Ondansetron ODT 8 MG TAB.RAPDIS TRANSLINGU (00:26)
[2024-02-23] MEDS: Ketorolac Tromethamine 15 MG/ML VIAL IM (00:26)
--- NOTE | 2024-02-23 00:29 | PC.NURSE ---
Report taken from Angela JUSTICE assumed care of pt at 0000. Pt A&Ox3 skin pwd respirations even unlabored. Endorsing generalized body aches, N/V and headache beginning yesterday. Eval by PA, medicated per MAR. Awaiting improvement in symptoms and PO challenge, aware of plan of care.
--- NOTE | 2024-02-23 01:15 | PC.NURSE ---
PO challenge initiated, tolerated well.
--- NOTE | 2024-02-23 01:31 | PC.NURSE ---
Attempted to call [facility] for pt dc- voicemail left for [facility].
[2024-02-23 04:13] VITALS: BP 109/61; PULSE 75; RESP 16; TEMP 36.8; O2SAT 94
--- NOTE | 2024-02-23 06:44 | PC.NURSE ---
pt resting comfortably on stretcher. 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
[2024-02-23 08:00] VITALS: BP 110/78; PULSE 70; RESP 16; TEMP 36.8; O2SAT 94
[2024-02-23 09:48] VITALS: BP 110/78; PULSE 70; RESP 16; TEMP 36.8; O2SAT 98
== END 2024-02-23 09:49 | disposition home or self-care (01) ==
PROVIDERS: Emergency Provider Emergency Medicine
DX: B34.9 Viral infection, unspecified (principal); R10.2 Pelvic and perineal pain; R11.2 Nausea with vomiting, unspecified; M79.10 Myalgia, unspecified site; Z03.818 Encounter for observation for suspected exposure to other biological agents ruled out
CPT/HCPCS: 0241U; 96372; 99284; J1885

== ENCOUNTER → 2024-03-03 20:06 | Outpatient (BNV) | payer OTHER, SELFPAY | PROVIDERS: Emergency Provider Emergency Medicine; Visit Provider Internal Medicine | DX: R07.9 Chest pain, unspecified (principal) | CPT/HCPCS: 93010 ==

== ENCOUNTER 2024-03-30 22:03 | Emergency (ER) | payer OTHER, SELFPAY ==
--- NOTE | ~2024-03-30 | XR_ITS ---
CLINICAL HISTORY: swallowed FB, ?toothbrish handle 1 view chest x-ray Comparison: CR - XR CHEST 1V - 03/03/24 20:12 EST Findings: Heart size is normal. No consolidation, significant pleural effusion or pneumothorax. No acute fracture. No radiopaque foreign body. IMPRESSION: 1. No acute findings. This document has been electronically signed by: Dinorah Duarte MD on 03/31/2024 00:54:30
--- NOTE | ~2024-03-30 | XR_ITS ---
CLINICAL HISTORY: swallowed FB, ?toothbrush handle 2 views soft tissue neck Comparison: None Findings No acute fractures or dislocation. Epiglottis not well delineated. Prevertebral soft tissues within normal limits in thickness. No radiopaque foreign body. IMPRESSION: No acute findings This document has been electronically signed by: Dinorah Duarte MD on 03/31/2024 00:57:09
[2024-03-30 22:06] VITALS: BP 149/85; PULSE 101; RESP 20; TEMP 36.1; O2SAT 97; BMI 32.6
--- NOTE | 2024-03-31 00:11 | ED_ITS ---
HPI - General Adult General Chief complaint: Abdominal Pain Stated complaint: swallowed non edible object? Time Seen by Provider: 03/31/24 00:09 Source: patient Mode of arrival: ambulatory Limitations: no limitations History of Present Illness ED Provider: berto garrido NP HPI narrative: Patient is a 23 year old male with past medical history of autism, intellectual disorder, mood disorder, adjustment disorder who presents to the emergency department coming from [facility] for evaluation. Reports that he broke off the handle to his toothbrush and swallowed it about 30 minutes prior to arrival. This was not witnessed by [facility] staff. Staff is present at bedside, they report that he provided to him the broken tooth brush afterwards, they could not find the missing piece. When asked why he did this he shrugs his shoulders, I asked whether he did this in an attempt to hurt himself and he states yes. When asked whether he is wanting to kill himself he states yes. Staff reports that he does typically have behaviors and this would not be abnormal for him. Endorses having abdominal pain but does not localizes to any area. Home staff gave him water to drink prior to arrival and he tolerated this well without vomiting. Related Data Home Medications ?Medication ?Instructions ?Recorded ?Confirmed dextroamphetamine-amphetamine ER 15 mg PO DAILY 09/30/23 02/04/24 15 mg 24hr capsule,extend release (Adderall XR) divalproex 500 mg tablet,extended 2,000 mg PO BEDTIME 09/30/23 02/04/24 release 24 hr (Depakote ER) mirtazapine 7.5 mg tablet 7.5 mg PO BEDTIME 09/30/23 02/04/24 aripiprazole 30 mg tablet 30 mg PO DAILY 11/25/23 02/04/24 melatonin 5 mg tablet 5 mg PO BEDTIME PRN Sleep 11/26/23 02/04/24 dextroamphetamine-amphetamine 5 mg 1 tab PO QNOON 02/04/24 02/04/24 tablet olanzapine 5 mg tablet 5 mg PO Q6H PRN Agitation 02/04/24 02/04/24 trazodone 50 mg tablet 50 mg PO BEDTIME PRN Insomnia 02/04/24 02/04/24 Previous Rx's ?Medication ?Instructions ?Recorded docusate sodium 100 mg capsule 100 mg PO DAILY #30 caps 12/22/23 (Colace) amoxicillin 875 mg-potassium 1 tab PO BID #14 tabs 02/05/24 clavulanate 125 mg tablet ondansetron HCl 4 mg tablet 4 mg PO Q8H PRN nausea and 02/23/24 vomiting #10 tabs Allergies Allergy/AdvReac Type Severity Reaction Status Date / Time No Known Allergies Allergy Verified 03/30/24 22:07 Review of Systems 2 Review of Systems: Yes all other systems are reviewed and are negative [facility] Past Medical History Attestation statement: The following information was validated with the patient. Source: old records reviewed Medical History CIRO (obstructive sleep apnea) Social History Social History (Updated 03/03/24 @ 21:02 by Ximena Ragsdale DO) Patient Tobacco Use Status: Never used Tobacco Physical Exam ED Vital Signs: Vital Signs - 24 hr 03/30/24 22:06 03/31/24 02:00 03/31/24 06:00 Temperature 97 F 97.9 F 97.8 F Pulse Rate 101 H 86 79 Respiratory Rate 20 16 16 Blood Pressure 149/85 H 101/50 L 101/59 L Pulse Oximetry 97 96 96 Oxygen Delivery Method Room Air Room Air Room Air 03/31/24 08:19 03/31/24 11:17 Temperature 97.9 F 97.9 F Pulse Rate 75 75 Respiratory Rate 18 18 Blood Pressure 117/73 117/73 Pulse Oximetry 96 96 Oxygen Delivery Method Room Air Room Air BMI result Body Mass Index 32.6 Appearance: Alert.?Oriented to person, place and time. No acute distress.?Normal affect. ENT: Pharynx normal.?? Neck: Normal inspection.? Neck supple.?? CVS: Heart sounds normal. Normal heart rate and rhythm.? Pulses normal.?? Respiratory: No respiratory distress.? Lung sounds clear to auscultation bilaterally?? Abdomen: Soft and non-tender. Normoactive bowel sounds. ? Skin: Skin warm and dry.? Normal skin color.? Extremities: No lower extremity edema.? Neuro: Moves all extremities spontaneously. Sensation intact bilaterally. CN II- XII intact. No focal neuro deficits. Ambulates with normal steady gait. Course Course Course Narrative: 0927 Parisa Loo PA-C --> CARE team evaluated patient and recommended discharge back to the [facility]. Patient contracts for safety, [facility] OK with plan. Medications Administered Discontinued Medications Generic Name Dose Route Start Last Admin Trade Name Denise PRN Reason Stop Dose Admin Amphetamine/Dextroamphetamine 15 mg 03/31/24 09:52 03/31/24 10:08 Dextroamphetamine/Amphetamine Xr 5 Mg Cap.Er.24h PO 03/31/24 09:53 15 mg ONCE ONE Administration Aripiprazole 30 mg 03/31/24 09:52 03/31/24 10:09 Aripiprazole 30 Mg Tablet PO 03/31/24 09:53 30 mg ONCE ONE Administration Docusate Sodium 100 mg 03/31/24 09:52 03/31/24 10:09 Docusate Sodium 100 Mg Capsule PO 03/31/24 09:53 100 mg ONCE ONE Administration Medical Decision Making Medical Decision Making [facility] Narrative: Patient is a 23 year old male with past medical history of autism, intellectual disorder, mood disorder, adjustment disorder who presents emergency department for evaluation after reported ingestion of foreign body; the handle of a plastic toothbrush in an attempt to harm himself endorsing suicidal ideations as per HPI. Overall he appears well, nontoxic. He has tolerated oral intake prior to arrival without vomiting. His abdominal examination is benign. Will obtain XR imaging soft tissue neck as well as XR to assess for radiopaque foreign body or evidence of complication. Will obtain basic labs for medical clearance and referred to care team for evaluation given SI. Differential Diagnosis Differential Diagnoses: The differential diagnosis associated with the presentation includes (See narrative above) Admission/Observation Consideration of admission/observation: Escalation of care including admission/observation considered Patient is being observed in the Emergency Department for depression suicidal ideations. Observation time was started at 00:24 on 03/31/2024.?The patient is currently stable and non-toxic appearing. Observation is being initiated in the Emergency Department to allow time to help differentiate if the patient's depression and suicidal ideation is due to Substance Induced Mood Disorder and Anxiety versus Major Depressive Disorder, Bipolar Roc[place], Bipolar Depression, and Schizophrenia. The patient will receive frequent psychiatric assessments from the provider as well as from nursing staff. The patient will also be monitored for the need of PRN agitation medications such as Haldol, Ativan, and Benadryl. Lab Data [facility] Lab Attestation statement: I reviewed the patient's lab results. CBC is without leukocytosis anemia or thrombocytopenia. No electrolyte derangement. No JOHN. LFTs within normal range. Toxicology positive for amphetamines of which he is prescribed. 03/31/24 01:42 03/31/24 01:42 Labs: Lab Results 03/31/24 Range/Units 01:42 WBC 10.0 (4.8-10.8) X10*3/uL RBC 4.70 (4.60-5.80) X10*6/uL Hgb 14.5 (14.0-18.0) g/dl Hct 42.4 (42.0-52.0) % MCV 90.2 (80.0-98.0) fL MCH 30.9 (27.0-33.0) pg MCHC 34.2 (31.0-36.0) g/dl RDW 12.9 (11.0-16.0) % Plt Count 192 (160-400) X10*3/uL MPV 10.1 (9.4-12.4) fL Immature Gran % (Auto) 0.3 (0.0-0.4) % Neut % (Auto) 59.3 (45-73) % Lymph % (Auto) 29.2 (20-40) % [place] % (Auto) 9.7 (2-11) % Eos % (Auto) 1.2 (0-4) % Baso % (Auto) 0.3 (0-2) % Lymph # (Auto) 2.9 (1.2-4.9) X10*3/uL [place] # (Auto) 1.0 (0.1-1.2) X10*3/uL Eos # (Auto) 0.1 (0.0-0.4) X10*3/uL Baso # (Auto) 0.0 (0.0-0.2) X10*3/uL Abs Immat Gran (auto) 0.03 (0.00-0.03) X10*3/uL Absolute Neuts (auto) 5.9 (2.0-8.3) x10*3/uL Absolute Nucleated RBC 0.000 (0.0-0.012) X10*3/uL Nucleated RBC % (auto) 0.0 (0.0-0.2) /100WBC Sodium 140 (135-145) mmol/L Potassium 3.7 D (3.3-5.1) mmol/L Chloride 108 (96-108) mmol/L Carbon Dioxide 22 (22-29) mmol/L Anion Gap 14 (12-20) BUN 15 (9-16) mg/dL Creatinine 0.76 (0.5-1.4) mg/dL Estim Creat Clear Calc 148.3 Estimated GFR > 60 Random Glucose 105 (60-115) mg/dL Calcium 8.7 (8.4-10.2) mg/dL Total Bilirubin 0.3 (0.0-1.0) mg/dL AST 41 H (5-37) U/L ALT 39 (0-40) U/L Alkaline Phosphatase 60 (39-117) U/L Total Protein 7.5 (6.5-8.0) g/dL Albumin 3.7 (3.5-5.0) g/dL Urine Opiates Screen Not Detected (Not Detect) Ur Buprenorphine Scrn Not Detected (Not Detect) ng/mL Ur Oxycodone Screen Not Detected (Not Detect) ng/mL Urine Methadone Screen Not Detected (Not Detect) ng/mL Urine Fentanyl Screen Not Detected (Not Detect) Ur Barbiturates Screen Not Detected (Not Detect) Ur Phencyclidine Scrn Not Detected (Not Detect) Ur Amphetamines Screen POSITIVE H (Not Detect) U Benzodiazepines Scrn Not Detected (Not Detect) Urine Cocaine Screen Not Detected (Not Detect) U Marijuana (THC) Screen Not Detected (Not Detect) Ethyl Alcohol < 10 mg/dL Independent Interpretation I performed an independent interpretation of an: Plain X-Ray (No appreciable radiopaque foreign body.) Radiology Impression Discussion of test interpretation with radiology: I have reviewed the radiologist's reading. Radiologist Impression: 2 views soft tissue neck Comparison: None Findings No acute fractures or dislocation. Epiglottis not well delineated. Prevertebral soft tissues within normal limits in thickness. No radiopaque foreign body. IMPRESSION: No acute findings 1 view chest x-ray Comparison: CR - XR CHEST 1V - 03/03/24 20:12 EST Findings: Heart size is normal. No consolidation, significant pleural effusion or pneumothorax. No acute fracture. No radiopaque foreign body. IMPRESSION: 1. No acute findings. Independent Historian Clinical information obtained from an independent historian. History obtained from or confirmed by: EMS and Other (jail staff) External Record Review External record reviewed: Outpatient record Chronic Conditions Patient?s care impacted by: Other (See narrative above) Discharge Plan Discharge Clinical Impression: Ingestion of foreign body Patient Disposition: Xfer Other Transfer Details: Back to [facility] Additional Instructions: Follow up with your primary care provider. Return to the emergency department immediately if your symptoms worsen or if you develop any dizziness, shortness of breath, difficulty breathing, chest pain, blurry vision, loss of vision, nausea, vomiting, abdominal pain, fever, chills, back pain, or any other complaints. Prescriptions: No Action docusate sodium [Colace] 100 mg capsule 100 mg PO DAILY Qty: 30 0RF dextroamphetamine-amphetamine 5 mg tablet 1 tab PO QNOON trazodone 50 mg tablet 50 mg PO BEDTIME PRN (Reason: Insomnia) olanzapine 5 mg tablet 5 mg PO Q6H PRN (Reason: Agitation) amoxicillin-pot clavulanate 875-125 mg tablet 1 tab PO BID Qty: 14 0RF divalproex [Depakote ER] 500 mg Tablet Extended Release 24 Hr 2,000 mg PO BEDTIME dextroamphetamine-amphetamine [Adderall XR] 15 mg Capsule,Extended Release 24hr 15 mg PO DAILY mirtazapine 7.5 mg Tablet 7.5 mg PO BEDTIME aripiprazole 30 mg tablet 30 mg PO DAILY melatonin 5 mg Tablet 5 mg PO BEDTIME PRN (Reason: Sleep) ondansetron HCl 4 mg tablet 4 mg PO Q8H PRN (Reason: nausea and vomiting) Qty: 10 0RF Interventions: ED Discharge Assessment Last Done: 03/31/24 11:17 Discharge Date/Time: 03/31/24 11:18 Print Language: Pashto
--- NOTE | 2024-03-31 00:18 | PC.NURSE ---
answering questions with clear speech, mental status at baseline. ambulated to treatment area with steady gait. was able to tolerate PO at home post incident without drooling. no wheezing/stridor appreciated. jail staff at bedside.
--- NOTE | 2024-03-31 00:34 | PC.NURSE ---
alf staff remains at bedside. pt assigned 1:1safety monitor due to self harm comments; endorsing that he broke off the end of his toothbrush and purposely swallowed it in an attempt to harm self.
--- NOTE | 2024-03-31 01:03 | PC.NURSE ---
Pt belongings in [facility] port shelf 1; Staff from [facility] who is at bedside with the pt, belongings placed in the locker near security.
[2024-03-31 01:48] LABS: MANUAL DIFF FLAG NO
[2024-03-31 01:49] LABS: Basophils Percent Auto 0.3 % (0-2); Eosinophils Absolute Auto 0.1 X10*3/uL (0.0-0.4); Eosinophils Percent Auto 1.2 % (0-4); Hematocrit 42.4 % (42.0-52.0); Hemoglobin 14.5 g/dl (14.0-18.0); Imm Gran Abs Auto 0.03 X10*3/uL (0.00-0.03); Imm Gran Pct Auto 0.3 % (0.0-0.4); Lymphocytes Absolute Auto 2.9 X10*3/uL (1.2-4.9); Lymphocytes Percent Auto 29.2 % (20-40); Mean Corpuscular HGB Conc 34.2 g/dl (31.0-36.0); Mean Corpuscular Hemoglobin 30.9 pg (27.0-33.0); Mean Corpuscular Volume 90.2 fL (80.0-98.0); Mean Platelet Volume 10.1 fL (9.4-12.4); Monocytes Percent Auto 9.7 % (2-11); Neutrophils Absolute Auto 5.9 x10*3/uL (2.0-8.3); Neutrophils Percent Auto 59.3 % (45-73); Platelet Count 192 X10*3/uL (160-400); Red Cell Distribution Width 12.9 % (11.0-16.0)
[2024-03-31 02:00] VITALS: BP 101/50; PULSE 86; RESP 16; TEMP 36.6; O2SAT 96
[2024-03-31 02:03] LABS: Amphetamine Screen Urine POSITIVE (Not Detect); Barbiturates, Urine Not Detected (Not Detect); Benzodiazepines Screen Urine Not Detected (Not Detect); Buprenorphine Scr Not Detected (Not Detect); Cannabinoid Screen Urine Not Detected (Not Detect); Cocaine Screen Urine Not Detected (Not Detect); Fentanyl, urine Not Detected (Not Detect); Methadone Screen, Urine Not Detected (Not Detect); Opiate Screen Urine Not Detected (Not Detect); Oxycodone Screen Urine Not Detected (Not Detect); Phencyclidine Screen Urine Not Detected (Not Detect)
[2024-03-31 02:05] LABS: Alanine Aminotransferase 39 U/L (0-40); Albumin Level 3.7 g/dL (3.5-5.0); Anion Gap 14 (12-20); Aspartate Amino Transferase 41 U/L (5-37); Bilirubin Total 0.3 mg/dL (0.0-1.0); Blood Urea Nitrogen 15 mg/dL (9-16); Calcium 8.7 mg/dL (8.4-10.2); Carbon Dioxide 22 mmol/L (22-29); Chloride 108 mmol/L (96-108); Creatinine Clr Calc Pharmacy 148.3; Estimated Glomerular Filt Rate > 60; Ethanol < 10 mg/dL; Glucose Random 105 mg/dL (60-115); Potassium 3.7 mmol/L (3.3-5.1); Sodium 140 mmol/L (135-145); Total Protein 7.5 g/dL (6.5-8.0)
[2024-03-31 02:23] LABS: Alkaline Phosphatase 60 U/L (39-117)
[2024-03-31 06:00] VITALS: BP 101/59; PULSE 79; RESP 16; TEMP 36.6; O2SAT 96
[2024-03-31 08:19] VITALS: BP 117/73; PULSE 75; RESP 18; TEMP 36.6; O2SAT 96
--- NOTE | 2024-03-31 09:36 | MHC.CARE ---
Pt does not meet the criteria for a higher level of care at this time and is at his baseline. Pt will be discharged to nursing home. Provider in agreement.
--- NOTE | 2024-03-31 09:50 | PC.NURSE ---
[facility] that pt is taking Abilify 30mg, Colace 100mg, and Adderall XR 15mg daily
[2024-03-31] MEDS: Dextroamphetamine/Amphetamine XR 5 MG CAP.ER.24H 15 MG PO (10:08)
[2024-03-31] MEDS: Docusate Sodium 100 MG CAPSULE PO (10:09)
[2024-03-31] MEDS: ARIPiprazole 30 MG TABLET PO (10:09)
[2024-03-31 11:17] VITALS: BP 117/73; PULSE 75; RESP 18; TEMP 36.6; O2SAT 96
== END 2024-03-31 11:18 | disposition other institution (70) ==
PROVIDERS: Nurse Practitioner Family; Emergency Provider Emergency Medicine Emergency Medical Services
DX: T18.2XXA Foreign body in stomach, initial encounter (principal); T18.9XXA Foreign body of alimentary tract, part unspecified, initial encounter; R45.851 Suicidal ideations; R10.9 Unspecified abdominal pain; F84.0 Autistic disorder; F79 Unspecified intellectual disabilities; M54.2 Cervicalgia; W44.B0XA Plastic object unspecified, entering into or through a natural orifice, initial encounter; Y93.9 Activity, unspecified; Y92.9 Unspecified place or not applicable; Y99.8 Other external cause status; Z79.899 Other long term (current) drug therapy; Z51.81 Encounter for therapeutic drug level monitoring
CPT/HCPCS: 36415; 70360; 71045; 80053; 80307; 85025; 99284; S9485

== ENCOUNTER → 2024-03-31 00:17 | Outpatient (BNV) | payer OTHER, SELFPAY | PROVIDERS: Emergency Provider Emergency Medicine Emergency Medical Services; Visit Provider Specialist | DX: T18.9XXA Foreign body of alimentary tract, part unspecified, initial encounter (principal) | CPT/HCPCS: 70360; 71045 ==

== ENCOUNTER 2024-06-06 22:14 | Emergency (ER) | payer OTHER, SELFPAY ==
--- NOTE | 2024-06-06 22:18 | ED_ITS ---
HPI - Psych General Chief Complaint: Psychiatric Symptoms Stated Complaint: si/hi tried to strangulate w shoelace ,hear voices Time Seen by Provider: 06/06/24 22:18 Source: patient Mode of arrival: ambulatory Limitations: no limitations History of Present Illness ED Provider: HPI Narrative: Patient with schizophrenia came from [facility] hearing voices to kill himself and others patient is on Zyprexa as needed no substance abuse patient tried to wrap a shoe string over his neck Related Data Home Medications ?Medication ?Instructions ?Recorded ?Confirmed dextroamphetamine-amphetamine ER 15 mg PO DAILY 09/30/23 06/07/24 15 mg 24hr capsule,extend release (Adderall XR) divalproex 500 mg tablet,extended 1,500 mg PO BEDTIME 09/30/23 06/07/24 release 24 hr (Depakote ER) aripiprazole 30 mg tablet 30 mg PO DAILY 11/25/23 06/07/24 trazodone 50 mg tablet 100 mg PO BEDTIME Insomnia 02/04/24 06/07/24 acetaminophen 325 mg tablet 650 mg PO Q6H PRN body aches 06/07/24 06/07/24 benztropine 0.5 mg tablet 0.5 mg PO BID 06/07/24 06/07/24 cetirizine 10 mg tablet 10 mg PO DAILY PRN allergies 06/07/24 06/07/24 divalproex 250 mg tablet,extended 250 mg PO BEDTIME 06/07/24 06/07/24 release 24 hr (Depakote ER) haloperidol 10 mg tablet 10 mg PO BID 06/07/24 06/07/24 lorazepam 0.5 mg tablet 0.5 mg PO Q12H PRN Anxiety 06/07/24 06/07/24 mirtazapine 15 mg tablet 15 mg PO BEDTIME 06/07/24 06/07/24 olanzapine 2.5 mg tablet 2.5 mg PO TID PRN Agitation 06/07/24 06/07/24 ondansetron 4 mg disintegrating 4 mg PO Q8H PRN Nausea 06/07/24 06/07/24 tablet prazosin 2 mg capsule 2 mg PO BEDTIME 06/07/24 06/07/24 sennosides 8.6 mg tablet (senna) 8.6 mg PO DAILY PRN Constipation 06/07/24 06/07/24 Previous Rx's ?Medication ?Instructions ?Recorded docusate sodium 100 mg capsule 100 mg PO DAILY #30 caps 12/22/23 (Colace) Allergies Allergy/AdvReac Type Severity Reaction Status Date / Time Pork/Porcine Containing AdvReac Stomach Verified 06/06/24 23:35 Products Upset Review of Systems 2 Review of Systems: Yes all other systems are reviewed and are negative [facility] Past Medical History Medical History Schizophrenia CIRO (obstructive sleep apnea) Social History Social History Patient Tobacco Use Status: Never used Tobacco Advance Directives: No Advance Directives Information Provided: No Do you have a plan to hurt others: No Plan Physical Exam 2 Vital Signs: Vital Signs: Last Vital Signs Temp 98.0 F 06/08/24 20:00 Pulse 110 H 06/08/24 20:00 Resp 19 06/09/24 05:49 BP 127/94 H 06/08/24 20:04 Pulse Ox 97 06/08/24 20:00 O2 Del Method Room Air 06/08/24 16:15 BMI result Body Mass Index 28.9 Appearance: Alert. Oriented X3. No acute distress. Eyes: PERRLA, No Nystagmus ENT: Pharynx normal. Oral Mucosa moist Neck: Normal inspection. Neck supple. CVS: Normal heart rate and rhythm. Pulses normal. Respiratory: No respiratory distress. Equal air entry bilateral, no wheezing/rales/rhonchi Abdomen: Soft and nontender. Bowel sounds are present, no mass palpable, no CVA tenderness Skin: Skin warm and dry. Normal skin color. Normal skin turgor. Extremities: No lower extremity edema. No calf tenderness psych: Feels suicidal homicidal hearing voices telling him to do that, ,calm otherwise cooperative Neuro: Oriented X 3. No motor deficit. No sensory deficit.No cerebellar signs , cranial nerves II-XII intact Course Course Course Narrative: Time: 08:45 Date: 06/07/24 Provider: Ximena Ragsdale, DO Patient in physician observation for psychiatric evaluation.? No acute events reported overnight. No current complaints. VS stable.? Pending CARE team evaluation. Will continue to monitor. Time: 19:39 Date: 06/08/24 Provider: Mitch Carrillo MD Patient in physician observation for psychiatric evaluation.? No acute events reported overnight. No current complaints. VS stable.? The patient was seen by the care team with the plan for a psychiatric inpatient bed search. Will continue to monitor. Reevaluation(s) Reevaluation #1: Time: 17:00 Date: 06/09/24 Provider: Ximena Ragsdale DO Physician observation ended at 5pm. Patient to be admitted as inpatient to psychiatry at [facility] Medications Administered Generic Name Dose Route Start Last Admin Trade Name Freq PRN Reason Stop Dose Admin Amphetamine/Dextroamphetamine 15 mg 06/07/24 11:15 06/09/24 08:51 Dextroamphetamine/Amphetamine Xr 5 Mg Cap.Er.24h PO 15 mg DAILY NIKOLAY Administration Aripiprazole 30 mg 06/08/24 09:00 06/09/24 08:51 Aripiprazole 10 Mg Tablet PO 30 mg DAILY NIKOLAY Administration Benztropine Mesylate 0.5 mg 06/07/24 11:15 06/09/24 08:51 Benztropine Mesylate 0.5 Mg Tablet PO 0.5 mg BID NIKOLAY Administration Divalproex Sodium 250 mg 06/07/24 21:00 06/08/24 20:04 Divalproex Sodium Er 250 Mg Tab.Er.24h PO 250 mg BEDTIME NIKOLAY Administration Divalproex Sodium 1,500 mg 06/07/24 21:00 06/08/24 20:03 Divalproex Sodium Er 500 Mg Tab.Er.24h PO 1,500 mg BEDTIME NIKOLAY Administration Docusate Sodium 100 mg 06/07/24 11:15 06/09/24 08:51 Docusate Sodium 100 Mg Capsule PO Not Given DAILY NIKOLAY Haloperidol 10 mg 06/07/24 11:15 06/09/24 08:51 Haloperidol 5 Mg Tablet PO 10 mg BID NIKOLAY Administration Lorazepam 0.5 mg 06/07/24 11:02 06/07/24 11:36 Lorazepam 0.5 Mg Tablet PO 0.5 mg Q12H PRN Administration Anxiety Mirtazapine 15 mg 06/07/24 21:00 06/08/24 20:04 Mirtazapine 15 Mg Tablet PO 15 mg BEDTIME NIKOLAY Administration Prazosin HCl 2 mg 06/07/24 21:00 06/08/24 20:04 Prazosin Hcl 1 Mg Capsule PO 2 mg BEDTIME NIKOLAY Administration Protocol Trazodone HCl 100 mg 06/07/24 21:00 06/08/24 20:04 Trazodone Hcl 100 Mg Tablet PO 100 mg BEDTIME NIKOLAY Administration Discontinued Medications Generic Name Dose Route Start Last Admin Trade Name Denise PRN Reason Stop Dose Admin Lorazepam 2 mg 06/06/24 22:19 06/06/24 22:40 Lorazepam 1 Mg Tablet PO 06/06/24 22:20 2 mg ONCE ONE Administration Olanzapine 10 mg 06/06/24 22:18 06/06/24 22:41 Olanzapine Odt 10 Mg Tab.Rapdis TRANSLINGU 06/06/24 22:19 10 mg ONCE ONE Administration Medical Decision Making Lab Data 06/06/24 23:41 06/06/24 23:41 Labs: Lab Results 06/06/24 06/07/24 06/09/24 Range/Units 23:41 10:05 08:36 WBC 9.6 (4.8-10.8) X10*3/uL RBC 5.16 (4.60-5.80) X10*6/uL Hgb 15.7 (14.0-18.0) g/dl Hct 46.6 (42.0-52.0) % MCV 90.3 (80.0-98.0) fL MCH 30.4 (27.0-33.0) pg MCHC 33.7 (31.0-36.0) g/dl RDW 13.1 (11.0-16.0) % Plt Count 188 (160-400) X10*3/uL MPV 9.8 (9.4-12.4) fL Immature Gran % (Auto) 0.5 H (0.0-0.4) % Neut % (Auto) 66.9 (45-73) % Lymph % (Auto) 22.7 (20-40) % [place] % (Auto) 8.2 (2-11) % Eos % (Auto) 1.3 (0-4) % Baso % (Auto) 0.4 (0-2) % Lymph # (Auto) 2.2 (1.2-4.9) X10*3/uL [place] # (Auto) 0.8 (0.1-1.2) X10*3/uL Eos # (Auto) 0.1 (0.0-0.4) X10*3/uL Baso # (Auto) 0.0 (0.0-0.2) X10*3/uL Abs Immat Gran (auto) 0.05 H (0.00-0.03) X10*3/uL Absolute Neuts (auto) 6.4 (2.0-8.3) x10*3/uL Absolute Nucleated RBC 0.000 (0.0-0.012) X10*3/uL Nucleated RBC % (auto) 0.0 (0.0-0.2) /100WBC Sodium 141 (135-145) mmol/L Potassium 4.0 (3.3-5.1) mmol/L Chloride 108 (96-108) mmol/L Carbon Dioxide 21 L (22-29) mmol/L Anion Gap 16 (12-20) BUN 14 (9-16) mg/dL Creatinine 0.77 (0.5-1.4) mg/dL Estim Creat Clear Calc 157.9 Estimated GFR > 60 Random Glucose 112 (60-115) mg/dL Calcium 9.3 D (8.4-10.2) mg/dL Total Bilirubin 0.2 (0.0-1.0) mg/dL AST 31 (5-37) U/L ALT 30 (0-40) U/L Alkaline Phosphatase 96 (39-117) U/L Total Protein 7.5 (6.5-8.0) g/dL Albumin 4.0 (3.5-5.0) g/dL Salicylates < 5.0 L (15-30) mg/dL Urine Opiates Screen Not Detected (Not Detect) Ur Buprenorphine Scrn Not Detected (Not Detect) ng/mL Ur Oxycodone Screen Not Detected (Not Detect) ng/mL Urine Methadone Screen Not Detected (Not Detect) ng/mL Urine Fentanyl Screen Not Detected (Not Detect) Acetaminophen < 3 (<30) mcg/mL Ur Barbiturates Screen Not Detected (Not Detect) Ur Phencyclidine Scrn Not Detected (Not Detect) Ur Amphetamines Screen POSITIVE H (Not Detect) U Benzodiazepines Scrn Not Detected (Not Detect) Urine Cocaine Screen Not Detected (Not Detect) U Marijuana (THC) Screen Not Detected (Not Detect) Ethyl Alcohol < 10 mg/dL COVID-19 ([facility]) Negative (Negative) COVID-19 Clin Com See Note Discharge Plan Discharge Clinical Impression: Suicidal ideation Patient Disposition: Xfer Psychiatric Hosp Transfer Details: [facility] Prescriptions: No Action docusate sodium [Colace] 100 mg capsule 100 mg PO DAILY Qty: 30 0RF trazodone 50 mg tablet 100 mg PO BEDTIME benztropine 0.5 mg tablet 0.5 mg PO BID haloperidol 10 mg tablet 10 mg PO BID prazosin 2 mg capsule 2 mg PO BEDTIME lorazepam 0.5 mg tablet 0.5 mg PO Q12H MDD 2 PRN (Reason: Anxiety) olanzapine 2.5 mg tablet 2.5 mg PO TID PRN (Reason: Agitation) acetaminophen 325 mg tablet 650 mg PO Q6H MDD 2600mg PRN (Reason: body aches) cetirizine 10 mg tablet 10 mg PO DAILY PRN (Reason: allergies) sennosides [senna] 8.6 mg tablet 8.6 mg PO DAILY PRN (Reason: Constipation) mirtazapine 15 mg tablet 15 mg PO BEDTIME ondansetron 4 mg Tablet,Disintegrating 4 mg PO Q8H PRN (Reason: Nausea) divalproex [Depakote ER] 250 mg Tablet Extended Release 24 Hr 250 mg PO BEDTIME Rx Instructions: TAKE WITH 500 MG TABLETS FOR TDD 1750 MG divalproex [Depakote ER] 500 mg Tablet Extended Release 24 Hr 1,500 mg PO BEDTIME Rx Instructions: TAKE WITH 250 MG TABLETS FOR TDD 1750 MG dextroamphetamine-amphetamine [Adderall XR] 15 mg Capsule,Extended Release 24hr 15 mg PO DAILY aripiprazole 30 mg tablet 30 mg PO DAILY Interventions: [place]-Suicide Risk Severity Scale Last Done: 06/08/24 23:01 Print Language: Bahamian
[2024-06-06 22:20] VITALS: BP 145/98; BP 148/82; PULSE 104; PULSE 99; RESP 18; TEMP 37; O2SAT 98; O2SAT 99; BMI 28.9
--- NOTE | 2024-06-06 22:28 | MHC.EDTECH ---
On arrival pt spitting at [employer]. 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 Staff worried about potential exposure. Changeover carried out in RM 9 per discussion with charge nurse Pati. Security standing in vicinity. Changeover smooth without any difficulty. Pt belongings 1 bag secured in paper closet between ER and pod. See belongings list for exact location.
[2024-06-06] MEDS: LORazepam 1 MG TABLET 2 MG PO (22:40)
[2024-06-06] MEDS: OLANZapine ODT 10 MG TAB.RAPDIS TRANSLINGU (22:41)
[2024-06-06 23:47] LABS: MANUAL DIFF FLAG NO
[2024-06-06 23:49] LABS: Basophils Percent Auto 0.4 % (0-2); Eosinophils Absolute Auto 0.1 X10*3/uL (0.0-0.4); Eosinophils Percent Auto 1.3 % (0-4); Hematocrit 46.6 % (42.0-52.0); Hemoglobin 15.7 g/dl (14.0-18.0); Imm Gran Abs Auto 0.05 X10*3/uL (0.00-0.03); Imm Gran Pct Auto 0.5 % (0.0-0.4); Lymphocytes Absolute Auto 2.2 X10*3/uL (1.2-4.9); Lymphocytes Percent Auto 22.7 % (20-40); Mean Corpuscular HGB Conc 33.7 g/dl (31.0-36.0); Mean Corpuscular Hemoglobin 30.4 pg (27.0-33.0); Mean Corpuscular Volume 90.3 fL (80.0-98.0); Mean Platelet Volume 9.8 fL (9.4-12.4); Monocytes Absolute Auto 0.8 X10*3/uL (0.1-1.2); Monocytes Percent Auto 8.2 % (2-11); Neutrophils Absolute Auto 6.4 x10*3/uL (2.0-8.3); Neutrophils Percent Auto 66.9 % (45-73); Platelet Count 188 X10*3/uL (160-400); Red Blood Count 5.16 X10*6/uL (4.60-5.80); Red Cell Distribution Width 13.1 % (11.0-16.0); White Blood Count 9.6 X10*3/uL (4.8-10.8)
[2024-06-07 00:10] LABS: Acetaminophen LAB < 3 mcg/mL (<30); Alkaline Phosphatase 96 U/L (39-117); Anion Gap 16 (12-20); Aspartate Amino Transferase 31 U/L (5-37); Bilirubin Total 0.2 mg/dL (0.0-1.0); Blood Urea Nitrogen 14 mg/dL (9-16); Calcium 9.3 mg/dL (8.4-10.2); Carbon Dioxide 21 mmol/L (22-29); Chloride 108 mmol/L (96-108); Creatinine Clr Calc Pharmacy 157.9; Estimated Glomerular Filt Rate > 60; Ethanol < 10 mg/dL; Glucose Random 112 mg/dL (60-115); Salicylate < 5.0 mg/dL (15-30); Sodium 141 mmol/L (135-145); Total Protein 7.5 g/dL (6.5-8.0)
[2024-06-07 00:24] LABS: Alanine Aminotransferase 30 U/L (0-40)
[2024-06-07 09:07] VITALS: BP 128/69; PULSE 80; RESP 18; O2SAT 96
[2024-06-07 10:26] LABS: Amphetamine Screen Urine POSITIVE (Not Detect); Barbiturates, Urine Not Detected (Not Detect); Benzodiazepines Screen Urine Not Detected (Not Detect); Buprenorphine Scr Not Detected (Not Detect); Cannabinoid Screen Urine Not Detected (Not Detect); Cocaine Screen Urine Not Detected (Not Detect); Fentanyl, urine Not Detected (Not Detect); Methadone Screen, Urine Not Detected (Not Detect); Opiate Screen Urine Not Detected (Not Detect); Oxycodone Screen Urine Not Detected (Not Detect); Phencyclidine Screen Urine Not Detected (Not Detect)
--- NOTE | 2024-06-07 10:58 | PHA.MEDREC ---
Pharmacy Consult ? Medication Reconciliation Pharmacy has completed the medication reconciliation. MED REC COMPLETE SPEAKING TO HERBER AT [facility] ([phone])
[2024-06-07] MEDS: ARIPiprazole 10 MG TABLET 30 MG PO (11:11)
[2024-06-07] MEDS: Dextroamphetamine/Amphetamine XR 5 MG CAP.ER.24H 15 MG PO (11:12)
[2024-06-07] MEDS: Benztropine Mesylate 0.5 MG TABLET PO ×2 (11:12→21:29)
[2024-06-07] MEDS: LORazepam 0.5 MG TABLET PO (11:36)
[2024-06-07] MEDS: HaloperidoL 5 MG TABLET 10 MG PO ×2 (11:36→21:29)
[2024-06-07] MEDS: Docusate Sodium 100 MG CAPSULE PO (12:07)
[2024-06-07 17:31] VITALS: BP 98/61; PULSE 99; RESP 16; O2SAT 95
[2024-06-07] MEDS: Divalproex Sodium ER 250 MG TAB.ER.24H PO (21:28)
[2024-06-07] MEDS: Divalproex Sodium ER 500 MG TAB.ER.24H 1500 MG PO (21:28)
[2024-06-07 21:29] VITALS: BP 98/61
[2024-06-07] MEDS: Prazosin HCL 1 MG CAPSULE 2 MG PO (21:29)
[2024-06-07] MEDS: traZODone HCL 100 MG TABLET PO (21:29)
[2024-06-07] MEDS: Mirtazapine 15 MG TABLET PO (21:29)
--- NOTE | 2024-06-08 03:21 | PC.NURSE ---
Report received from Susy lunsford.. pt sleeping at this time.
[2024-06-08] MEDS: Docusate Sodium 100 MG CAPSULE PO (08:26)
[2024-06-08] MEDS: Dextroamphetamine/Amphetamine XR 5 MG CAP.ER.24H 15 MG PO (08:26)
[2024-06-08] MEDS: Benztropine Mesylate 0.5 MG TABLET PO ×2 (08:26→20:04)
[2024-06-08] MEDS: HaloperidoL 5 MG TABLET 10 MG PO ×2 (08:27→20:03)
--- NOTE | 2024-06-08 08:30 | MHC.EDTECH ---
Pt ambulated to bathroom , morning care ,and showered, done RN aware.
[2024-06-08 16:15] VITALS: BP 106/76; PULSE 108; RESP 13; TEMP 37.1; O2SAT 93
[2024-06-08 20:00] VITALS: BP 127/94; PULSE 110; RESP 20; TEMP 36.7; O2SAT 97
[2024-06-08] MEDS: Divalproex Sodium ER 500 MG TAB.ER.24H 1500 MG PO (20:03)
[2024-06-08 20:04] VITALS: BP 127/94
[2024-06-08] MEDS: Divalproex Sodium ER 250 MG TAB.ER.24H PO (20:04)
[2024-06-08] MEDS: Mirtazapine 15 MG TABLET PO (20:04)
[2024-06-08] MEDS: Prazosin HCL 1 MG CAPSULE 2 MG PO (20:04)
[2024-06-08] MEDS: traZODone HCL 100 MG TABLET PO (20:04)
--- NOTE | 2024-06-09 | ECG_ITS ---
Test Reason : check qtc Blood Pressure : */* mmHG Vent. Rate : 72 BPM Atrial Rate : 72 BPM P-R Int : 146 ms QRS Dur : 88 ms QT Int : 374 ms P-R-T Axes : 45 67 49 degrees QTcB Int : 409 ms Normal sinus rhythm Normal ECG When compared with ECG of 03-Mar-2024 20:11, No significant change was found Referred By: Ximena Ragsdale Electronically Signed By: LEONOR HAJI MD
[2024-06-09 05:49] VITALS: RESP 19
--- NOTE | 2024-06-09 06:15 | PC.NURSE ---
Patient slept through the night, no distress observed/reported, meds and meals compliant. 15 minutes safety check, no behavior and safety concerns, disposition per care team is section 12 inpatient bed search, will continue to monitor
--- NOTE | 2024-06-09 07:35 | PC.NURSE ---
Assumed care of patient at 0645, patient appears to be in no apparent distress this am, calm and cooperative, ate breakfast in common area, no resting on couch in 7. Continue plan of care for S12 IPLOC
[2024-06-09] MEDS: Dextroamphetamine/Amphetamine XR 5 MG CAP.ER.24H 15 MG PO (08:51)
[2024-06-09] MEDS: HaloperidoL 5 MG TABLET 10 MG PO (08:51)
[2024-06-09] MEDS: Benztropine Mesylate 0.5 MG TABLET PO (08:51)
[2024-06-09] MEDS: ARIPiprazole 10 MG TABLET 30 MG PO (08:51)
[2024-06-09 09:17] LABS: COVID-19 Test Negative (Negative); IDNOW Serial# 55D5AD1C
[2024-06-09 16:37] VITALS: BP 143/91; PULSE 94; RESP 16; TEMP 36.9; O2SAT 94
[2024-06-09 17:21] VITALS: BP 143/91; PULSE 94; RESP 16; TEMP 36.9; O2SAT 94
== END 2024-06-09 17:23 ==
PROVIDERS: Emergency Medicine; Emergency Provider Internal Medicine
DX: R45.851 Suicidal ideations (principal); F20.9 Schizophrenia, unspecified; Z11.52 Encounter for screening for COVID-19; Z79.899 Other long term (current) drug therapy
CPT/HCPCS: 36415; 80053; 80143; 80179; 80307; 85025; 87635; 93005; 99285; S9485

== ENCOUNTER → 2024-06-09 08:41 | Outpatient (BNV) | payer OTHER, SELFPAY | PROVIDERS: Emergency Provider Internal Medicine; Visit Provider Internal Medicine Cardiovascular Disease | DX: Z13.6 Encounter for screening for cardiovascular disorders (principal) | CPT/HCPCS: 93010 ==

== ENCOUNTER 2024-07-21 23:59 | Emergency (ER) | payer OTHER, SELFPAY ==
[2024-07-22 00:10] VITALS: BP 150/90; PULSE 96; O2SAT 100
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
[2024-07-22 00:16] VITALS: BP 137/62; PULSE 103; RESP 18; TEMP 36.6; O2SAT 97; BMI 33.7
[2024-07-22] MEDS: LORazepam 1 MG TABLET 2 MG PO (00:25)
[2024-07-22] MEDS: Acetaminophen 325 MG TABLET 650 MG PO (00:28)
--- NOTE | 2024-07-22 00:32 | PC.NURSE ---
medicated per Navya johnson to give Tylenol per Dr. Echols.
[2024-07-22 00:43] LABS: MANUAL DIFF FLAG NO
[2024-07-22 00:45] LABS: Basophils Absolute Auto 0.1 X10*3/uL (0.0-0.2); Basophils Percent Auto 0.5 % (0-2); Eosinophils Percent Auto 0.3 % (0-4); Hemoglobin 15.9 g/dl (14.0-18.0); Imm Gran Abs Auto 0.04 X10*3/uL (0.00-0.03); Imm Gran Pct Auto 0.4 % (0.0-0.4); Lymphocytes Absolute Auto 2.2 X10*3/uL (1.2-4.9); Lymphocytes Percent Auto 21.3 % (20-40); Mean Corpuscular HGB Conc 33.1 g/dl (31.0-36.0); Mean Corpuscular Volume 90.6 fL (80.0-98.0); Mean Platelet Volume 10.1 fL (9.4-12.4); Monocytes Absolute Auto 0.7 X10*3/uL (0.1-1.2); Neutrophils Absolute Auto 7.3 x10*3/uL (2.0-8.3); Neutrophils Percent Auto 70.5 % (45-73); Platelet Count 229 X10*3/uL (160-400); Red Cell Distribution Width 12.9 % (11.0-16.0); White Blood Count 10.3 X10*3/uL (4.8-10.8)
--- NOTE | 2024-07-22 00:57 | PC.NURSE ---
medication list with chart attempted to update as much as possible.
[2024-07-22 00:58] VITALS: BP 137/62; PULSE 103; RESP 18; TEMP 36.6; O2SAT 97
[2024-07-22 00:58] LABS: Amphetamine Screen Urine Not Detected (Not Detect); Barbiturates, Urine Not Detected (Not Detect); Benzodiazepines Screen Urine Not Detected (Not Detect); Buprenorphine Scr Not Detected (Not Detect); Cannabinoid Screen Urine Not Detected (Not Detect); Cocaine Screen Urine Not Detected (Not Detect); Fentanyl, urine Not Detected (Not Detect); Methadone Screen, Urine Not Detected (Not Detect); Opiate Screen Urine Not Detected (Not Detect); Oxycodone Screen Urine Not Detected (Not Detect); Phencyclidine Screen Urine Not Detected (Not Detect)
[2024-07-22 01:03] LABS: Alanine Aminotransferase 28 U/L (0-40); Albumin Level 4.4 g/dL (3.5-5.0); Anion Gap 18 (12-20); Aspartate Amino Transferase 31 U/L (5-37); Bilirubin Total 0.2 mg/dL (0.0-1.0); Blood Urea Nitrogen 12 mg/dL (9-16); Calcium 9.5 mg/dL (8.4-10.2); Carbon Dioxide 19 mmol/L (22-29); Chloride 108 mmol/L (96-108); Creatinine Clr Calc Pharmacy 149.3; Estimated Glomerular Filt Rate > 60; Ethanol < 10 mg/dL; Glucose Random 97 mg/dL (60-115); Potassium 4.3 mmol/L (3.3-5.1); Sodium 141 mmol/L (135-145); Total Protein 7.8 g/dL (6.5-8.0)
[2024-07-22 01:58] LABS: Alkaline Phosphatase 62 U/L (39-117)
[2024-07-22 06:00] VITALS: BP 97/52; PULSE 90; RESP 18; TEMP 36.7; O2SAT 96
--- NOTE | 2024-07-22 08:49 | PC.NURSE ---
Pt has been sleeping since this RN arrival
--- NOTE | 2024-07-22 09:48 | PC.NURSE ---
Christopher from pharmacy is willing to complete med rec. Home med list sent to pharmacy
--- NOTE | 2024-07-22 10:01 | PC.NURSE ---
Pt has been awake and ambulatory in pod for about an hour. Calm. Has just seen CARE team staff. NAD.
--- NOTE | 2024-07-22 12:13 | PHA.MEDREC ---
Pharmacy Consult ? Medication Reconciliation Pharmacy has REVIEWED the medication reconciliation COMPLETED BY NURSING. This [facility] updated the home med list utilizing a list from [facility] on [address], [address].
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
[2024-07-22 13:56] VITALS: BP 134/58; PULSE 105; RESP 20; TEMP 36.4; O2SAT 95
[2024-07-22 17:09] VITALS: BP 134/58; PULSE 105; RESP 20; TEMP 36.4; O2SAT 95
== END 2024-07-22 17:10 | disposition skilled nursing facility (03) ==
PROVIDERS: Emergency Provider Emergency Medicine
DX: R45.6 Violent behavior (principal); R45.851 Suicidal ideations; Z51.81 Encounter for therapeutic drug level monitoring; Z79.899 Other long term (current) drug therapy
CPT/HCPCS: 36415; 80053; 80307; 85025; 99285; S9485

== ENCOUNTER 2024-07-22 17:21 | Emergency (ER) | payer OTHER, SELFPAY ==
[2024-07-22 17:24] VITALS: BP 119/92; PULSE 112; RESP 16; TEMP 36.4; O2SAT 97; BMI 38.6
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
--- NOTE | 2024-07-22 19:23 | PHA.MEDREC ---
Pharmacy Consult ? Medication Reconciliation Pharmacy has reviewed the medication reconciliation done by nursing. Patient was just discharged today 07/22/24 and [facility] was done with [id number].
[2024-07-22] MEDS: Benztropine Mesylate 0.5 MG TABLET PO (19:36)
[2024-07-22] MEDS: OLANZapine 2.5 MG TABLET PO (19:36)
[2024-07-22] MEDS: Melatonin 3 MG TABLET 6 MG PO (19:36)
[2024-07-22] MEDS: Divalproex Sodium ER 500 MG TAB.ER.24H 1500 MG PO (19:36)
[2024-07-22] MEDS: Divalproex Sodium ER 250 MG TAB.ER.24H PO (19:36)
[2024-07-22] MEDS: Prazosin HCL 1 MG CAPSULE 2 MG PO (19:36)
[2024-07-22] MEDS: fluPHENAZine HCl 1 MG TABLET PO (19:41)
[2024-07-22] MEDS: fluPHENAZine HCl 1 MG TABLET 4 MG PO (19:42)
--- NOTE | 2024-07-22 20:02 | PC.NURSE ---
assumed care for pt at approximately 1845. pt took hs meds, ate a snack and is requesting discharge. consulting [facility] care team.
[2024-07-22 20:13] VITALS: BP 117/86; PULSE 105; RESP 16; TEMP 36.4; O2SAT 98
== END 2024-07-22 21:34 | disposition other institution (70) ==
PROVIDERS: Emergency Provider Emergency Medicine
DX: R45.6 Violent behavior (principal); Z79.899 Other long term (current) drug therapy
CPT/HCPCS: 99284; S9485

== ENCOUNTER 2024-08-21 01:21 | Emergency (ER) | payer OTHER, SELFPAY ==
[2024-08-21 01:24] VITALS: BP 140/76; PULSE 112; RESP 18; TEMP 36.9; O2SAT 96; BMI 35.1
[2024-08-21 01:43] LABS: Basophils Percent Auto 0.5 % (0-2); Eosinophils Absolute Auto 0.1 X10*3/uL (0.0-0.4); Eosinophils Percent Auto 1.6 % (0-4); Hematocrit 45.1 % (42.0-52.0); Hemoglobin 15.3 g/dl (14.0-18.0); Imm Gran Abs Auto 0.03 X10*3/uL (0.00-0.03); Imm Gran Pct Auto 0.4 % (0.0-0.4); Lymphocytes Absolute Auto 1.6 X10*3/uL (1.2-4.9); Lymphocytes Percent Auto 18.9 % (20-40); MANUAL DIFF FLAG NO; Mean Corpuscular HGB Conc 33.9 g/dl (31.0-36.0); Mean Corpuscular Hemoglobin 29.7 pg (27.0-33.0); Mean Corpuscular Volume 87.6 fL (80.0-98.0); Monocytes Absolute Auto 0.9 X10*3/uL (0.1-1.2); Monocytes Percent Auto 9.9 % (2-11); Neutrophils Absolute Auto 5.9 x10*3/uL (2.0-8.3); Neutrophils Percent Auto 68.7 % (45-73); Platelet Count 175 X10*3/uL (160-400); Red Blood Count 5.15 X10*6/uL (4.60-5.80); Red Cell Distribution Width 13.2 % (11.0-16.0); White Blood Count 8.6 X10*3/uL (4.8-10.8)
[2024-08-21 01:59] LABS: Alanine Aminotransferase 51 U/L (0-40); Albumin Level 4.5 g/dL (3.5-5.0); Alkaline Phosphatase 62 U/L (39-117); Anion Gap 16 (12-20); Aspartate Amino Transferase 52 U/L (5-37); Bilirubin Total 0.3 mg/dL (0.0-1.0); Blood Urea Nitrogen 17 mg/dL (9-16); Calcium 9.6 mg/dL (8.4-10.2); Carbon Dioxide 22 mmol/L (22-29); Chloride 106 mmol/L (96-108); Creatinine Clr Calc Pharmacy 150.4; Estimated Glomerular Filt Rate > 60; Ethanol < 10 mg/dL; Glucose Random 102 mg/dL (60-115); Potassium 4.1 mmol/L (3.3-5.1); Sodium 140 mmol/L (135-145); Total Protein 7.8 g/dL (6.5-8.0)
--- NOTE | 2024-08-21 02:05 | MHC.EDTECH ---
roving changer was done and pts belongings were placed in locker number 1
[2024-08-21 02:07] LABS: Acetaminophen LAB < 3 mcg/mL (<30); Salicylate < 5.0 mg/dL (15-30)
--- NOTE | 2024-08-21 02:11 | ED.PSYCH ---
HPI - Psych General Chief Complaint: Psychiatric Symptoms Stated Complaint: SI & Hearing Voices Time Seen by Provider: 08/21/24 01:36 Source: patient Mode of arrival: ambulatory Limitations: no limitations History of Present Illness ED Provider: Ana Dolan NP HPI Narrative: Patient is a 23-year-old male who presents emergency department for evaluation coming from a [facility] today. Admits to having auditory hallucinations instruction to hurt himself and others. When asked he admits to suicidal ideations with a plan to cut himself with a knife. He denies homicidal ideations at this time. Reports having recently been inpatient approximately 1-2 months ago, believes that medication changes were made at that time but does not recall what they are. He states he has been compliant with his medications. He does endorse a does not get along with other [facility] residents. He denies any recent over altercations. He denies recreational drug or alcohol usage. He additionally reports having a sore throat with onset today, denies known sick contacts. He is able to swallow without difficulty. He denies fevers or chills, no cough, shortness of breath, difficulty breathing. Related Data Home Medications ?Medication ?Instructions ?Recorded ?Confirmed divalproex 500 mg tablet,extended 1,500 mg PO BEDTIME 09/30/23 08/21/24 release 24 hr (Depakote ER) acetaminophen 325 mg tablet 650 mg PO Q6H PRN body aches, ROBLES 06/07/24 08/21/24 Fever > 100 benztropine 0.5 mg tablet 0.5 mg PO BID 06/07/24 08/21/24 cetirizine 10 mg tablet 10 mg PO DAILY PRN allergies 06/07/24 08/21/24 divalproex 250 mg tablet,extended 250 mg PO BEDTIME 06/07/24 08/21/24 release 24 hr (Depakote ER) lorazepam 0.5 mg tablet 0.5 mg PO Q12H PRN Anxiety 06/07/24 08/21/24 olanzapine 2.5 mg tablet 2.5 mg PO TID PRN Agitation 06/07/24 08/21/24 ondansetron 4 mg disintegrating 4 mg PO Q8H PRN Nausea 06/07/24 08/21/24 tablet prazosin 2 mg capsule 2 mg PO BEDTIME 06/07/24 08/21/24 sennosides 8.6 mg tablet (senna) 8.6 mg PO DAILY PRN Constipation 06/07/24 08/21/24 melatonin 3 mg tablet 6 mg PO BEDTIME 07/22/24 08/21/24 aripiprazole 20 mg tablet 20 mg PO QAM 08/21/24 08/21/24 haloperidol 10 mg tablet 10 mg PO BID 08/21/24 08/21/24 Previous Rx's ?Medication ?Instructions ?Recorded docusate sodium 100 mg capsule 100 mg PO DAILY #30 caps 12/22/23 (Colace) Allergies Allergy/AdvReac Type Severity Reaction Status Date / Time Pork/Porcine Containing AdvReac Stomach Verified 08/21/24 01:29 Products Upset Review of Systems Review of Systems: Yes all other systems are reviewed and are negative [facility] Past Medical History Attestation statement: The following information was validated with the patient. Source: old records reviewed Medical History Schizophrenia CIRO (obstructive sleep apnea) Social History Social History Patient Tobacco Use Status: Never used Tobacco Advance Directives: No Advance Directives Information Provided: Yes Do you have a plan to hurt others: No Plan Physical Exam Vital Signs: Vital Signs: Last Vital Signs Temp 98.4 F 08/21/24 10:33 Pulse 87 08/21/24 10:33 Resp 15 08/21/24 10:33 BP 119/69 08/21/24 10:33 Pulse Ox 95 08/21/24 10:33 O2 Del Method Room Air 08/21/24 10:33 BMI result Body Mass Index 35.1 Appearance: Alert.?Oriented to person, place and time. No acute distress.?Normal affect. Eyes: Pupils equal, round and reactive to light.? ENT: Pharynx normal.??No erythema. No tonsillar hypertrophy or exudates. Uvula is midline. No trismus. No drooling. Neck: Normal inspection.? Neck supple.??No cervical adenopathy CVS: Heart sounds normal. Normal heart rate and rhythm.? Pulses normal.?? Respiratory: No respiratory distress.? Lung sounds clear to auscultation bilaterally?? Abdomen: Soft and non-tender. Normoactive bowel sounds. Skin: Skin warm and dry.? Normal skin color.? Extremities: No lower extremity edema.? Neuro: Moves all extremities spontaneously. Sensation intact bilaterally. CN II-XII intact. No focal neuro deficits. Ambulates with normal steady gait. Course Reevaluation(s) Reevaluation #1: DR. Harden's Progress note:08/21/2024: VSS, patient appear stable and organized, no auditory hallucination now, no SI, no HI, care team evaluation is appreciated patient will be sent back to [facility]. Discontinue physician observation. Time: 09:13 Medications Administered Discontinued Medications Generic Name Dose Route Start Last Admin Trade Name Freq PRN Reason Stop Dose Admin Ibuprofen 600 mg 08/21/24 08:03 08/21/24 08:07 Ibuprofen 600 Mg Tablet PO 08/21/24 08:04 600 mg ONCE ONE Administration Medical Decision Making Medical Decision Making MDM Narrative: Patient is a 23 old male with past medical history of schizophrenia who presents emergency department from [facility] for evaluation of suicidal ideations with a plan as per HPI and auditory hallucinations. He endorses having a sore throat with onset today, on examination does not have findings concerning for [employer], plan to obtain viral serologies in addition to group a strep testing. Will obtain serum labs for medical clearance and I have care team cocktail T sheet for safe disposition planning. Differential Diagnosis Differential Diagnoses: The differential diagnosis associated with the presentation includes (See narrative above and below for further detail) Admission/Observation Consideration of admission/observation: Escalation of care including admission/observation considered Patient is being observed in the Emergency Department for suicidal ideation and hallucination. Observation time was started at 02:38 on 08/21/2024..?The patient is currently stable and non-toxic appearing. Observation is being initiated in the Emergency Department to allow time to help differentiate if the patient's depression and suicidal ideation is due to Substance Induced Mood Disorder and Anxiety versus Major Depressive Disorder, Bipolar [place], Bipolar Depression, and Schizophrenia. The patient will receive frequent psychiatric assessments from the provider as well as from nursing staff. The patient will also be monitored for the need of PRN agitation medications such as Haldol, Ativan, and Benadryl. Consult Healthcare Provider Management of the patient was discussed with: Behavioral Health Provider (CARE team) Lab Data MDM Lab Attestation statement: I reviewed the patient's lab results. CBC is without leukocytosis anemia or thrombocytopenia. No electrolyte derangement. No JOHN. Minimally elevated AST/ALT as seen on prior otherwise unremarkable LFT. Urinalysis without evidence of urinary tract infection. 08/21/24 01:38 08/21/24 01:38 Labs: Lab Results 08/21/24 08/21/24 08/21/24 Range/Units 01:38 02:22 02:33 WBC 8.6 (4.8-10.8) X10*3/uL RBC 5.15 (4.60-5.80) X10*6/uL Hgb 15.3 (14.0-18.0) g/dl Hct 45.1 (42.0-52.0) % MCV 87.6 (80.0-98.0) fL MCH 29.7 (27.0-33.0) pg MCHC 33.9 (31.0-36.0) g/dl RDW 13.2 (11.0-16.0) % Plt Count 175 (160-400) X10*3/uL MPV 10.0 (9.4-12.4) fL Immature Gran % (Auto) 0.4 (0.0-0.4) % Neut % (Auto) 68.7 (45-73) % Lymph % (Auto) 18.9 L (20-40) % [place] % (Auto) 9.9 (2-11) % Eos % (Auto) 1.6 (0-4) % Baso % (Auto) 0.5 (0-2) % Lymph # (Auto) 1.6 (1.2-4.9) X10*3/uL [place] # (Auto) 0.9 (0.1-1.2) X10*3/uL Eos # (Auto) 0.1 (0.0-0.4) X10*3/uL Baso # (Auto) 0.0 (0.0-0.2) X10*3/uL Abs Immat Gran (auto) 0.03 (0.00-0.03) X10*3/uL Absolute Neuts (auto) 5.9 (2.0-8.3) x10*3/uL Absolute Nucleated RBC 0.000 (0.0-0.012) X10*3/uL Nucleated RBC % (auto) 0.0 (0.0-0.2) /100WBC Sodium 140 (135-145) mmol/L Potassium 4.1 (3.3-5.1) mmol/L Chloride 106 (96-108) mmol/L Carbon Dioxide 22 (22-29) mmol/L Anion Gap 16 (12-20) BUN 17 H (9-16) mg/dL Creatinine 0.75 (0.5-1.4) mg/dL Estim Creat Clear Calc 150.4 Estimated GFR > 60 Random Glucose 102 (60-115) mg/dL Calcium 9.6 (8.4-10.2) mg/dL Total Bilirubin 0.3 (0.0-1.0) mg/dL AST 52 H (5-37) U/L ALT 51 H (0-40) U/L Alkaline Phosphatase 62 (39-117) U/L Total Protein 7.8 (6.5-8.0) g/dL Albumin 4.5 (3.5-5.0) g/dL Urine Color Yellow Urine Appearance Clear Urine pH 6.0 (5.0-9.0) Ur Specific [place] >= 1.030 H (1.005-1.025) Urine Protein Negative (Neg-Trace) mg/dL Urine Glucose (UA) Negative (Negative) mg/dL Urine Ketones 40 (Negative) mg/dL Urine Blood Negative (Negative) Urine Nitrite Negative (Negative) Ur Leukocyte Esterase Negative (Negative) Salicylates < 5.0 L (15-30) mg/dL Urine Opiates Screen Not Detected (Not Detect) Ur Buprenorphine Scrn Not Detected (Not Detect) ng/mL Ur Oxycodone Screen Not Detected (Not Detect) ng/mL Urine Methadone Screen Not Detected (Not Detect) ng/mL Urine Fentanyl Screen Not Detected (Not Detect) Acetaminophen < 3 (<30) mcg/mL Ur Barbiturates Screen Not Detected (Not Detect) Ur Phencyclidine Scrn Not Detected (Not Detect) Ur Amphetamines Screen Not Detected (Not Detect) U Benzodiazepines Scrn Not Detected (Not Detect) Urine Cocaine Screen Not Detected (Not Detect) U Marijuana (THC) Screen Not Detected (Not Detect) Ethyl Alcohol < 10 mg/dL Influenza Type A (PCR) NEGATIVE (Negative) Influenza Type B (PCR) NEGATIVE (Negative) RSV RNA Qual (PCR) NEGATIVE (Negative) SARS-CoV-2 RNA (RT-PCR) NEGATIVE (Negative) S. pyogenes GrpA ELIOT Negative (Negative) External Record Review External record reviewed: Outpatient record Chronic Conditions Patient?s care impacted by: Other (See narrative above) Discharge Plan Discharge Clinical Impression: Auditory hallucination Patient Disposition: er [facility] Instructions: Hallucinations (ED) Prescriptions: No Action docusate sodium [Colace] 100 mg capsule 100 mg PO DAILY Qty: 30 0RF benztropine 0.5 mg tablet 0.5 mg PO BID prazosin 2 mg capsule 2 mg PO BEDTIME lorazepam 0.5 mg tablet 0.5 mg PO Q12H PRN (Reason: Anxiety) olanzapine 2.5 mg tablet 2.5 mg PO TID PRN (Reason: Agitation) acetaminophen 325 mg tablet 650 mg PO Q6H MDD 2600mg PRN (Reason: body aches, ROBLES Fever > 100) cetirizine 10 mg tablet 10 mg PO DAILY PRN (Reason: allergies) sennosides [senna] 8.6 mg tablet 8.6 mg PO DAILY PRN (Reason: Constipation) ondansetron 4 mg Tablet,Disintegrating 4 mg PO Q8H PRN (Reason: Nausea) divalproex [Depakote ER] 250 mg Tablet Extended Release 24 Hr 250 mg PO BEDTIME Rx Instructions: TAKE WITH 500 MG TABLETS FOR TDD 1750 MG melatonin 3 mg Tablet 6 mg PO BEDTIME aripiprazole 20 mg tablet 20 mg PO QAM haloperidol 10 mg tablet 10 mg PO BID divalproex [Depakote ER] 500 mg Tablet Extended Release 24 Hr 1,500 mg PO BEDTIME Rx Instructions: TAKE WITH 250 MG TABLETS FOR TDD 1750 MG Interventions: Cashion-Suicide Risk Severity Scale Last Done: 08/21/24 09:23 ED Discharge Assessment Last Done: 08/21/24 10:33 Discharge Date/Time: 08/21/24 10:34 Print Language: Japanese
[2024-08-21 02:29] LABS: Appearance Urine Clear; Color Urine Yellow; Glucose Urine UA Negative (Negative); Leukocyte Esterase Urine Negative (Negative); Nitrite Urine Negative (Negative); Specific Gravity - Urine >= 1.030 (1.005-1.025); Urine Blood Negative (Negative); Urine Ketones 40 mg/dL (Negative); Urine Protein Negative (Neg-Trace)
[2024-08-21 02:44] LABS: Amphetamine Screen Urine Not Detected (Not Detect); Barbiturates, Urine Not Detected (Not Detect); Benzodiazepines Screen Urine Not Detected (Not Detect); Buprenorphine Scr Not Detected (Not Detect); Cannabinoid Screen Urine Not Detected (Not Detect); Cocaine Screen Urine Not Detected (Not Detect); Fentanyl, urine Not Detected (Not Detect); Methadone Screen, Urine Not Detected (Not Detect); Opiate Screen Urine Not Detected (Not Detect); Oxycodone Screen Urine Not Detected (Not Detect); Phencyclidine Screen Urine Not Detected (Not Detect)
[2024-08-21 02:57] LABS: IDNOW Serial# 58CA691E; Strep A Nucleic Acid Negative (Negative)
[2024-08-21 03:20] LABS: Influenza A PCR NEGATIVE (Negative); Influenza B PCR NEGATIVE (Negative); Resp Syncy Virus RNA Qual PCR NEGATIVE (Negative); SARS COV2 PCR INHOUSE NEGATIVE (Negative)
[2024-08-21] MEDS: Ibuprofen 600 MG TABLET PO (08:07)
--- NOTE | 2024-08-21 08:14 | PC.NURSE ---
patient requesting medication for sore throat
--- NOTE | 2024-08-21 09:39 | PC.NURSE ---
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
[2024-08-21 09:41] VITALS: BP 119/69; PULSE 87; RESP 15; TEMP 36.9; O2SAT 95
--- NOTE | 2024-08-21 09:53 | PHA.MEDREC ---
Pharmacy Consult ? Medication Reconciliation Pharmacy has reviewed the medication reconciliation completed by nursing. Utilized med list from facility.
[2024-08-21 10:33] VITALS: BP 119/69; PULSE 87; RESP 15; TEMP 36.9; O2SAT 95
== END 2024-08-21 10:34 | disposition skilled nursing facility (03) ==
PROVIDERS: Nurse Practitioner Family; Emergency Provider Emergency Medicine
DX: R45.851 Suicidal ideations (principal); R44.0 Auditory hallucinations; Z51.81 Encounter for therapeutic drug level monitoring; Z03.818 Encounter for observation for suspected exposure to other biological agents ruled out; Z79.899 Other long term (current) drug therapy
CPT/HCPCS: 0241U; 36415; 80053; 80143; 80179; 80307; 81003; 85025; 87651; 99285; S9485